=== PATIENT | male | born 1955 | race Caucasian/White ===

== ENCOUNTER → 2016-09-09 | Outpatient (CLI) | payer OTHER ==
--- NOTE | 2016-09-09 20:56 | DIAGNOSTIC IMAGING REPORT ---
MRI OF THE LUMBAR SPINE WITHOUT CONTRAST CLINICAL HISTORY: Acute right lower back pain. COMPARISON STUDY: Lumbar spine radiographs May 13, 2016. TECHNIQUE: Utilizing a 1.5 Marlin magnet and dedicated coil, multiplanar, multiecho imaging of the lumbar spine was performed without IV contrast. FINDINGS: For purposes of numbering on this exam, the L5-S1 disc space is assigned to axial image 27 of 30. Vertebral body heights are maintained. There is no intracanalicular mass or fluid collection. Conus terminates at the lower L1 level. Paravertebral soft tissues are unremarkable. There are disc bulges at multiple levels within the lower thoracic spine which result in mild narrowing of the central canal. L1-2: There is mild disc bulge. There is mild narrowing of the central canal. The neural foramen are patent. L2-3: There is disc bulge with ligamentous hypertrophy and facet arthrosis. The findings result in mild narrowing of the central canal, lateral recesses and neural foramen. L3-4: There is disc bulge with ligamentous hypertrophy and facet arthrosis result in mild narrowing of the central canal, lateral recesses and neural foramen. L4-5: There is disc bulge with ligamentous hypertrophy and mild facet arthrosis. There is mild narrowing of the central canal, lateral recesses and neural foramen. L5-S1: There is disc space narrowing with disc bulge. There is minimal narrowing of the central canal. There is moderate narrowing of the neural foramen. IMPRESSION: 1. Multilevel degenerative disc disease with disc bulges at numerous levels within the lower thoracic and lumbar spine that result in mild narrowing of the central canal and lateral recesses. 2. Mild to moderate multilevel neural foraminal stenosis most pronounced at L5-S1. Electronically signed by: Tae Marmolejo M.D. 09/09/2016 8:54 PM Dictated Date/Time: 09/09/2016 8:50 PM
== END | disposition home or self-care (01) ==
LOC: C.MRI 19:24
PROVIDERS: ATTEND Family Medicine
DX: M51.35 Other intervertebral disc degeneration, thoracolumbar region (principal); M54.41 Lumbago with sciatica, right side

== ENCOUNTER 2016-10-31 16:39 | Emergency (ER) | payer OTHER ==
[~2016-10-31] VITALS: Ht 165.1 cm; Wt 85.7 kg
[2016-10-31 16:43] VITALS: TEMP 36.4; Ht 165.1 cm; Wt 85.7 kg
[2016-10-31] MEDS ORDERED: LIDOCAINE/EPINEPHRINE 1% 20 ML VIAL INFIL STA (16:55)
--- NOTE | 2016-10-31 17:04 | EMERGENCY ROOM VISIT NOTE ---
ED Visit Note First contact with patient: 16:48 Chief Complaint: "Right knee, right arm bicep" History of Present Illness: This patient is a 60 year old male who presents to the Emergency Department via private vehicle for evaluation of their lower right leg, right thumb, and right arm laceration. Patient sustained the laceration while accidentally falling into a sickle bar attachment for a tractor. They report a moderate amount of bleeding initially. They deny any numbness or tingling into the distal extremity. Patient rates his current discomfort as a 0/10. Patient's Tetanus status is currently up-to-date. Medications: None Allergies: Naproxen PMH: Shoulder surgery, carpal tunnel surgery, hernia, tonsils, knee, elbow SHx: Lives at home with spouse and children ROS: All pertinent positive and negative review of systems are appropriately documented in the History of Present Illness. Physical Exam: VITAL SIGNS - Vital signs and nursing notes were reviewed. GENERAL - 60-year-old male appearing her stated age who is in no acute distress. Communicates well with provider and answers questions appropriately. SKIN - There is a 2 cm long laceration noted in a V-shaped on the skin overlying the anterior knee. The edges gape apart with traction. No foreign bodies appreciated. Upon further examination there are no deep structures including vessel, tendon, or bony structures appreciated. There is no active bleeding noted. There are also superficial abrasions/lacerations noted to the lateral aspect of the right thumb, as well as the right biceps region. MUSCULOSKELETAL -full range of motion of the right knee. NEUROLOGIC - he is neurovascularly intact in the affected regions. VASCULAR - Capillary refill was brisk. IMAGING: RIGHT KNEE 2 VIEWS CLINICAL HISTORY: Puncture wound. FINDINGS: AP and crosstable lateral views of the right knee are compared to study dated 11/22/2015. The skeletal structures are osteopenic. No fracture is seen. There is moderate to advanced tricompartmental degenerative joint space narrowing, greatest in the medial and patellofemoral compartments. There are large patellar enthesophytes as well as large marginal osteophytes. There is a joint effusion. Mild soft tissue edema is present around the knee. No radiodense foreign body is identified. IMPRESSION: 1. Small joint effusion with no acute bony abnormality seen in the right knee. 2. Osteopenia with moderate to advanced arthritic change as above. 3. Soft tissue swelling is present around the knee. No radiodense foreign body is identified. Electronically signed by: David Short M.D. 10/31/2016 5:21 PM ED Course: Patient was seen and evaluated by myself. Risks and benefits of performing primary wound closure versus no repair were discussed with the patient who verbalizes understanding. Verbal consent was obtained prior to performing the procedure. 3 cc of 1% lidocaine was used to anesthetize the 2 cm knee laceration. The wound was cleansed and prepped in the typical sterile fashion utilizing normal saline and Betadine. The wound was sterilely draped. Once proper anesthetization was established, the wound was further examined and demonstrated no deep involvement as previously suspected. The wound was copiously irrigated with normal saline and Betadine. The wound was closed using 3 simple, 5-0 nylon sutures with the wound edges being well approximated. Patient tolerated the procedure well. No complications were met. The wound was cleansed and dressed with a Bacitracin dressing. The remainder of the wounds were cleansed with normal saline, dressed with bacitracin followed by bandages. Patient educated on worrisome symptoms for return visit to the Emergency Department. Patient discharged to home in good condition. No evidence of bony abnormality of the right humerus. In the evaluation and treatment of this patient, the following differential diagnoses were considered: Patellar Fracture, Tibial Plateau Fracture, Distal Femur Fracture, ACL Injury, PCL Injury, Collateral Ligament Injury, Pes Anserine Bursitis, puncture wound, retained foreign body, right humerus fracture , right hand fracture, Maisonneuve Fracture. Problem List Medical Problems: (1) Gastric erosion Status: Chronic Allergies Coded Allergies: Naproxen (Unverified Allergy, Unknown, G I BLEED, 11/22/15) Vital Signs Date Time Temp Pulse Resp B/P Pulse Ox O2 Delivery O2 Flow Rate FiO2 10/31/16 18:26 72 20 138/72 99 10/31/16 16:43 36.4 64 20 95 Room Air Departure Information Impression Primary Impression: Laceration Dispostion Home / Self-Care Condition GOOD Referrals Audie Nolen M.D. (PCP) Patient Instructions My [facility] [place] Additional Instructions Discharge Instructions: You have received 3 sutures on your right knee. These sutures are NOT dissolvable and WILL need to be removed by a health care provider in 12 days. You can return to the Emergency Department or contact your Primary Care Provider to have the sutures removed. Proper wound care is essential for adequate wound healing and infection prevention. You can shower and clean the wound with soap and water. Do not scour over the wound, pat dry with a towel. Do not submerse the wound (i.e. bathe or dish wash) until the sutures have been removed. You can use an antibiotic ointment with a dressing over the wound for the next 3-4 days. After this time you may leave the wound dry and open to the air. If crust develops over the wound you can use a Q-tip to apply a 1:1 peroxide:water solution to clean the wound. Look for signs of infection of the wound including: increased pain, swelling, foul discharge, streaking, or increased temperature. If any of these are noticed you should return to the Emergency Department for further assessment and treatment. As with any laceration you may have received nerve damage to the surrounding tissues. This damage may or may not be permanent. You should keep the area covered with sunscreen for the first 6 months to 1 year when at risk for exposure to help minimize scarring. You can also use scar reducing creams or Vitamin E oil to help minimize scarring. For pain control, you can use the following ogxl-ecy-zurmuva medicines (if >12 yo): - Regular strength (325mg/tab) Tylenol (acetaminophen) 2 tabs every 4-6 hours as needed. Do not exceed 12 tablets in a 24 hour period. Avoid taking more than 3 grams (3000 mg) of Tylenol per day. This includes any other sources of acetaminophen you may take on a regular basis. - Regular strength (200 mg/tab) Advil (ibuprofen) 1-2 tabs every 4-6 hours as needed. Do not exceed a dose of 3200 mg per day. Return to the emergency department if your symptoms worsen despite treatment course outlined above. Please return to emergency department with any new/concerning symptoms. IMAGING: RIGHT KNEE 2 VIEWS CLINICAL HISTORY: Puncture wound. FINDINGS: AP and crosstable lateral views of the right knee are compared to study dated 11/22/2015. The skeletal structures are osteopenic. No fracture is seen. There is moderate to advanced tricompartmental degenerative joint space narrowing, greatest in the medial and patellofemoral compartments. There are large patellar enthesophytes as well as large marginal osteophytes. There is a joint effusion. Mild soft tissue edema is present around the knee. No radiodense foreign body is identified.
--- NOTE | 2016-10-31 17:23 | DIAGNOSTIC IMAGING REPORT ---
RIGHT KNEE 2 VIEWS CLINICAL HISTORY: Puncture wound. FINDINGS: AP and crosstable lateral views of the right knee are compared to study dated 11/22/2015. The skeletal structures are osteopenic. No fracture is seen. There is moderate to advanced tricompartmental degenerative joint space narrowing, greatest in the medial and patellofemoral compartments. There are large patellar enthesophytes as well as large marginal osteophytes. There is a joint effusion. Mild soft tissue edema is present around the knee. No radiodense foreign body is identified. IMPRESSION: 1. Small joint effusion with no acute bony abnormality seen in the right knee. 2. Osteopenia with moderate to advanced arthritic change as above. 3. Soft tissue swelling is present around the knee. No radiodense foreign body is identified. Electronically signed by: David Short M.D. 10/31/2016 5:21 PM Dictated Date/Time: 10/31/2016 5:20 PM
[2016-10-31 18:26] VITALS: BP 138/72; PULSE 72; O2SAT 99
== END 2016-10-31 18:28 | disposition home or self-care (01) ==
LOC: C.EDB 16:40 → C.EDD 18:28
DX: S81.811A Laceration without foreign body, right lower leg, initial encounter (principal); S61.011A Laceration without foreign body of right thumb without damage to nail, initial encounter; S41.111A Laceration without foreign body of right upper arm, initial encounter; W30.9XXA Contact with unspecified agricultural machinery, initial encounter; K25.7 Chronic gastric ulcer without hemorrhage or perforation

== ENCOUNTER 2016-11-10 15:43 | Emergency (ER) | payer OTHER ==
[~2016-11-10] VITALS: Ht 165.1 cm; Wt 84.5 kg
[2016-11-10 15:58] VITALS: BP 147/93; PULSE 69; TEMP 36.6; O2SAT 98; Ht 165.1 cm; Wt 84.5 kg
--- NOTE | 2016-11-10 16:18 | EMERGENCY ROOM VISIT NOTE ---
ED Visit Note First contact with patient: 16:03 CHIEF COMPLAINT: Suture removal This patient returns to the ED today for removal of sutures that were placed 10 days ago. There has been no swelling, redness, or drainage from the wound. The patient feels like the laceration is healing well. REVIEW OF SYSTEMS: A complete 6 point review of systems was reviewed with the patient with pertinent positives and negatives as per history of present illness. All else were negative. PMH: The patient is healthy; there is no significant medical or surgical history. SOCIAL HISTORY: Patient lives at home locally with his family. Patient declines alcohol, drug, tobacco use. PHYSICAL EXAM: Vital Signs: Reviewed Nurse's notes. There is a sutured wound on the right knee with no signs of infection. There is no erythema, swelling, or tenderness. EMERGENCY DEPARTMENT COURSE: The 3 sutures were removed without any difficulty and there was no separation of the wound edges. DIAGNOSIS: Healing laceration and suture removal DISCHARGE INSTRUCTIONS AND TREATMENT: Wash any remaining crusts off of the wound today and resume your normal activities. Problem List Medical Problems: (1) Gastric erosion Status: Chronic Allergies Coded Allergies: Naproxen (Unverified Allergy, Unknown, G I BLEED, 11/22/15) Vital Signs Date Time Temp Pulse Resp B/P (MAP) Pulse Ox O2 Delivery O2 Flow Rate FiO2 11/10/16 15:58 36.6 69 17 147/93 98 Room Air Departure Information Impression Primary Impression: Encounter for removal of sutures Additional Impression: Puncture wound of right knee without foreign body Dispostion Home / Self-Care Condition GOOD Referrals Audie Nolen M.D. (PCP) Patient Instructions My [facility] Additional Instructions Wash any remaining crusts off of the wound today and resume your normal activities. Continue to watch for signs of infection including redness, drainage, discharge , swelling, increased pain, or fever. If this occurs, please return for follow- up or follow-up with your PCP. Continue to use a dry dressing over the wound. Do not fully submerge knee in water until scabs completely fall off and wound has healed. Problem Qualifiers Additional Impression: Puncture wound of right knee without foreign body Encounter type: subsequent encounter Qualified Codes: S81.031D - Puncture wound without foreign body, right knee, subsequent encounter
== END 2016-11-10 16:32 | disposition home or self-care (01) ==
LOC: C.EDB 15:44 → C.EDD 16:32
DX: Z48.02 Encounter for removal of sutures (principal)

== ENCOUNTER 2018-08-12 22:38 | Inpatient (IN) ==
--- NOTE | 2018-08-12 22:59 | Emergency Department Note ---
ED Provider Note Name: [] Age: [] Arrives Via: [] Informant: [] CC: [] HPI: [] []male arrives for evaluation of []. [] ROS: See above HPI for pertinent positives & negatives. A total of 10 systems reviewed and were otherwise negative. Past Medical History: [] Past Surgical History: [] Family History: [] Social History: [] Home Medications: [] Allergies [] Physical: Vitals: [] Exam: GENERAL: Patient is well appearing and in no acute distress. EYES: No scleral icterus, unremarkable pupils. ENT: Mucous membranes moist, no nasal congestion. NECK: No masses appreciated, no meningismus, trachea is midline. RESPIRATORY: No dyspnea. Clear to auscultation and equal bilaterally. No wheeze, no rhonchi. CARDIOVASCULAR: Regular rate and rhythm. No murmurs, rubs, gallops appreciated. GASTROINTESTINAL: Abdomen soft, non-tender, no peritonitis. Bowel sounds positive. No masses appreciated. BACK: No midline tenderness, no CVA tenderness EXTREMITIES: Normal motion all extremities, no cyanosis, no edema. NEUROLOGIC: Alert and oriented, no acute motor or sensory deficits, no focal weakness, cranial nerves grossly intact. SKIN: No rash, no jaundice, no diaphoresis. ED Course: Prior Medical Record, Triage/Nursing Notes, Medications, Allergies reviewed by Me Vital Signs: reviewed and remarkable for [] Labs: Reviewed and remarkable for [] Interventions: [] Imaging: [] EKG: [] Consults: [] Course/Times: [] Blood pressure: [] Elevated - Referred to PCP - [place] to be Situation. Normal. No Referral necessary Disposition: []Discharged. See plan for instructions. Referred to: PCP/[]. Condition: Good[]. Discharged to: Home[]. Prescriptions: []. Differentials: [] amongst other pathologies. Medical Decision Making: [] Impression: [] Critical Care Time: [] Past Med/Surg History Social History Feels Safe at Home: Yes Smoking Status: Never smoker Results & Data Vital Signs Vital Signs - 24 hr 08/12/18 22:42 Temperature 36.4 C L Temperature Source Oral Sepsis Recent Fever Within 48 Hours No Sepsis New/Unexplained Change in Mental Status No Sepsis Action Taken by Nursing No Action Required Pulse Rate 73 Pulse Rhythm Regular Pulse Strength Normal Respiratory Rate 18 Respiratory Effort / Characteristics Non-Labored Spontaneous Respiratory Depth Normal Respiratory Pattern Regular Blood Pressure 145/94 H Blood Pressure Mean 111 Blood Pressure Position Sitting Pulse Oximetry 96 Oxygen Delivery Method Room Air Discharge Plan Visit Data Chief Complaint: Cardiac Assessment Stated Complaint: NUMBNESS L ARM, STIFF NECK ED Provider: Richard Chacon
--- NOTE | 2018-08-12 22:59 | Emergency Department Note ---
Entered by Baljit Rubio acting as a scribe for Richard Chacon MD History of Present Illness General Chief complaint: Cardiac Assessment Stated complaint: NUMBNESS L ARM, STIFF NECK Time Seen by Provider: 08/12/18 22:56 History of Present Illness Maximum Pain Intensity: 7 Allergies Allergy/AdvReac Type Severity Reaction Status Date / Time naproxen Allergy Unknown G I BLEED Unverified 11/22/15 01:45 Past Med/Surg History Social History Feels Safe at Home: Yes Smoking Status: Never smoker Physical Exam Vital Signs Vital Signs - 24 hr 08/12/18 22:42 Temperature 97.5 F L Temperature Source Oral Sepsis Recent Fever Within 48 Hours No Sepsis New/Unexplained Change in Mental Status No Sepsis Action Taken by Nursing No Action Required Pulse Rate 73 Pulse Rhythm Regular Pulse Strength Normal Respiratory Rate 18 Respiratory Effort / Characteristics Non-Labored Spontaneous Respiratory Depth Normal Respiratory Pattern Regular Blood Pressure 145/94 H Blood Pressure Mean 111 Blood Pressure Position Sitting Pulse Oximetry 96 Oxygen Delivery Method Room Air Discharge Plan Visit Data Chief Complaint: Cardiac Assessment Stated Complaint: NUMBNESS L ARM, STIFF NECK ED Provider: Richard Chacon
[2018-08-12] MEDS ORDERED: SODIUM CHLORIDE 0.9% 1000ML 1,000 ML IV ONE (23:06)
--- NOTE | 2018-08-12 23:10 | Emergency Department Note ---
Entered by Baljit Rubio acting as a scribe for Richard Chacon MD ED Provider Note Name: Ciro Lainez Age: 62 Arrives Via: Walk in Informant: Patient CC: Arm Pain HPI: A 62 year old male arrives for evaluation of left arm pain that started today around [id number]. The patient reports pain and numbness in his left and states that his arm feels as though "there is a blood pressure cuff on it." The patient admits to a headache, neck pain, and back pain. He denies any chest pain or abdominal pain. The patient states he was not doing anything specific when the pain started. 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 He also denies any vision changes. The patient reports a family history of cardiac problems and CVA. He reports that his brother had a stroke when he was 65 years old and states that his mother has a history of CAD. The patient denies taking any medications daily. He admits to a previous surgery on his right hand, but denies any others. He denies any alcohol, tobacco, or drug use. ROS: See above HPI for pertinent positives & negatives. A total of 10 systems reviewed and were otherwise negative. Past Medical History: Effusion of right knee, gastric erosion. Past Surgical History: Right hand surgery. Family History: Cardiac problems. CVA. Social History: . No tobacco, alcohol, or drug use. Home Medications: None. Allergies Naproxen Physical: Vitals: BP: 130/90, P: 72, R: 16, T: 97.5, O2 Sat: 96, Delivery: Room Air. Exam: GENERAL: Patient is mildly anxious appearing and in no acute distress. EYES: No scleral icterus, unremarkable pupils. ENT: Mucous membranes moist, no nasal congestion. NECK: No masses appreciated, no meningismus, trachea is midline. RESPIRATORY: No dyspnea. Clear to auscultation and equal bilaterally. No wheeze, no rhonchi. CARDIOVASCULAR: Regular rate and rhythm. No murmurs, rubs, gallops appreciated. GASTROINTESTINAL: Abdomen soft, non-tender, no peritonitis. Bowel sounds positive. No masses appreciated. BACK: No midline tenderness, no CVA tenderness EXTREMITIES: Normal motion all extremities, no cyanosis, no edema. NEUROLOGIC: Alert and oriented, decreased strength of left hand with perceived sensation of entire left arm, no focal weakness, cranial nerves grossly intact. Periodically garbled speech. SKIN: No rash, no jaundice, no diaphoresis. ED Course: Prior Medical Record, Triage/Nursing Notes, Medications, Allergies reviewed by Me Vital Signs: reviewed and remarkable for HTN Labs: Reviewed and remarkable for wnl Interventions: Saline Lock, NSS bolus 1 L , ASA 324mg Po Imaging: X ray results are stated below per my interpretation: Chest: 1 view: No infiltrate, no effusion, normal cardiac border. [employer] Radiologist interpretation reviewed by me: "CT HEAD: No intracranial hemorrhage, mass effect or CT evidence of acute infarct Ventricles are within limits and midline Visualized paranasal sinuses, mastoids and orbits are within limits Radiologist: Silvestre Correa M.D." EKG: NSR Consults: 0005: I reviewed the patient's case with Dr. Lane, [facility] Hospitalist. He will evaluate the patient for further management. Reassessments/Times: 2300: Past medical records reviewed. The patient was evaluated in room C3, and a complete history and physical examination were performed. 2357: I checked in on the patient and he reports that his symptoms are improving. Blood pressure: Elevated - Referred to Hospitalist Disposition: Hospitalization Differentials: CVA, ACS, dissection, cervical radiculopathy, amongst other pathologies. Medical Decision Making: Pleasant 62 yr old male with history of gastric ulcer in past but otherwise healthy and currently on no meds arrives after about 6 hours of numbness left a rm and mild weakness. On evaluation he periodically has some mild garbled speech which he attributes to anxiety/dry mouth. He does have mild decreased strength in left hand though still 5/5. He has no other neuro deficits. He does not meet TPA criteria and I do not feel there is incidation for calling stroke alert at this time given minimal symptoms. CT head was done which was negative. EKG nsr. Cbc, bmp, trop OK. He was given 1 L NSS bolus and mild improvement of symptoms. For neuro protection he was given ASA 324mg PO. He will be brought in to hospitalist service for further work-up of symptoms. While radiculopathy possible, I can no effectively rule out CVA at this time and with his extensive family history I feel that this rule out is required. With normal EKG, Trop after 6 hours symptoms I do not feel this is ACS. No chest pain nor symptoms consistent with dissection at this time. Impression: Paresthesia of left arm Richard Chacon MD The scribe's documentation has been prepared under my direction and personally reviewed by me in its entirety. I confirm that the note above accurately reflects all work, treatment, procedures, and medical decision making performed by me. Impression & Plan Paresthesia of left arm Past Med/Surg History Social History Communication Ability: Effective Courtesy Bus Driver Required: No Beliefs That Will Affect Care: None Current Living Situation: Spouse Other Information That Helps Us Care for You: No Feels Safe at Home: Yes Smoking Status: Never smoker Hx Alcohol Use: No Hx Substance Use: No Results & Data Vital Signs Vital Signs - 24 hr 08/12/18 22:42 08/12/18 23:54 08/13/18 00:59 Temperature 36.4 C L Temperature Source Oral Sepsis Recent Fever Within 48 Hours No Sepsis New/Unexplained Change in Mental Status No Sepsis Action Taken by Nursing No Action Required Pulse Rate 73 Pulse Rate [Right] 72 62 Pulse Rhythm Regular Pulse Rhythm [Right] Regular Regular Pulse Strength Normal Pulse Strength [Right] Normal Normal Respiratory Rate 18 16 16 Respiratory Effort / Characteristics Non-Labored Spontaneous Non-Labored Spontaneous Non-Labored Spontaneous Respiratory Depth Normal Normal Normal Respiratory Pattern Regular Regular Blood Pressure 145/94 H Blood Pressure [Left Arm] Blood Pressure [Right Arm] 130/90 154/87 H Blood Pressure Mean 111 Blood Pressure Mean [Left Arm] Blood Pressure Mean [Right Arm] 103 109 Blood Pressure Position Sitting Blood Pressure Position [Left Arm] Blood Pressure Position [Right Arm] Lying Pulse Oximetry 96 96 98 Oxygen Delivery Method Room Air Room Air Room Air 08/13/18 01:30 Temperature 36.5 C Temperature Source Oral Sepsis Recent Fever Within 48 Hours Sepsis New/Unexplained Change in Mental Status Sepsis Action Taken by Nursing Pulse Rate Pulse Rate [Right] 58 L Pulse Rhythm Pulse Rhythm [Right] Regular Pulse Strength Pulse Strength [Right] Normal Respiratory Rate 16 Respiratory Effort / Characteristics Non-Labored Respiratory Depth Normal Respiratory Pattern Regular Blood Pressure Blood Pressure [Left Arm] 168/99 H Blood Pressure [Right Arm] 168/99 H Blood Pressure Mean Blood Pressure Mean [Left Arm] 122 Blood Pressure Mean [Right Arm] 122 Blood Pressure Position Blood Pressure Position [Left Arm] Lying Blood Pressure Position [Right Arm] Pulse Oximetry 98 Oxygen Delivery Method Room Air Laboratory Data Result diagrams: 08/12/18 23:00 08/12/18 23:00 Lab Results 08/12/18 08/12/18 08/12/18 Range/Units 23:00 23:00 23:00 WBC 7.96 (4.8-10.8) K/uL RBC 4.97 (4.7-6.1) M/uL Hgb 15.3 (14.0-18.0) g/dL Hct 43.3 (42-52) % MCV 87.1 (80-100) fL MCH 30.8 (25-34) pg MCHC 35.3 (32-36) g/dL RDW Std Deviation 42.3 (36.4-46.3) fL RDW Coeff of Aparna 13.3 (11.5-14.5) % Plt Count 240 (130-400) K/uL MPV 8.8 (7.4-10.4) fL Immature Gran % (Auto) 0.3 % Neut % (Auto) 53.6 % Lymph % (Auto) 35.6 % [place] % (Auto) 7.4 % Eos % (Auto) 2.6 % Baso % (Auto) 0.5 % Immature Gran # (Auto) 0.02 (0.00-0.02) K/uL Neut # (Auto) 4.27 (1.4-6.5) K/uL Lymph # (Auto) 2.83 (1.2-3.4) K/uL [place] # (Auto) 0.59 (0.11-0.59) K/uL Eos # (Auto) 0.21 (0-0.5) K/uL Baso # (Auto) 0.04 (0-0.2) K/uL PT 10.6 (9.0-12.0) Seconds INR 1.0 (0.9-1.1) APTT 27.6 (21.0-31.0) Seconds PTT Ratio 1.0 Sodium 140 (136-145) mmol/L Potassium 4.1 (3.5-5.1) mmol/L Chloride 108 H (98-107) mmol/L Carbon Dioxide 26 (21-32) mmol/L Anion Gap 6.0 (3-11) BUN 21 H (7-18) mg/dl Creatinine 1.26 (0.6-1.4) mg/dl Est Cr Clr Drug Dosing 63.9 ml/min Est GFR ( Amer) 71.4 Est GFR (Non-Af Amer) 61.6 BUN/Creatinine Ratio 16.8 (10-20) Glucose 95 (70-99) mg/dl Calcium 8.4 L (8.5-10.1) mg/dl Magnesium 2.3 (1.8-2.4) mg/dl Total Bilirubin 0.4 (0.2-1) mg/dl Direct Bilirubin 0.1 (0-0.2) mg/dl AST 33 (15-37) U/L ALT 41 (12-78) U/L Alkaline Phosphatase 74 (45-117) U/L Troponin I < 0.015 (0-0.045) ng/ml Total Protein 7.1 (6.4-8.2) gm/dl Albumin 3.7 (3.4-5.0) gm/dl Administered Medications Gadobutrol (Gadavist 10ml) 8.5 ml IV ONCE PRN PRN Reason: Interaction Checking Stop: 08/17/18 04:18 Last Admin: 08/13/18 04:19 Dose: 8.5 ml Documented by: [id number] Discontinued Medications Aspirin (Aspirin Chew) 324 mg PO NOW STA Stop: 08/12/18 23:47 Last Admin: 08/12/18 23:53 Dose: 324 mg Documented by: [id number] Sodium Chloride (Nss 1000ml) 1,000 mls @ 999 mls/hr IV .Q1H1M ONE Stop: 08/13/18 00:06 Last Infusion: 08/13/18 00:26 Dose: 0 mls/hr Documented by: [id number] Admin: 08/12/18 23:14 Dose: 999 mls/hr Documented by: [id number] Discharge Plan Visit Data *Final* Discharge Date/Time: 08/13/18 01:14 Chief Complaint: Cardiac Assessment Stated Complaint: NUMBNESS L ARM, STIFF NECK ED Provider: Richard Chacon Discharge Problem: Paresthesia of left arm Patient Disposition: Admitted As Inpatient Discharge Instructions Interventions: ED Discharge Assessment Last Done: 08/13/18 01:14 The scribe's documentation has been prepared under my direction and personally reviewed by me in its entirety. I confirm that the note above accurately reflects all work, treatment, procedures, and medical decision making performed by me.
[2018-08-12 23:19] LABS: Basophils # (auto) 0.04 K/uL (0-0.2); Basophils % (auto) 0.5 %; Eosinophils # (auto) 0.21 K/uL (0-0.5); Eosinophils % (auto) 2.6 %; Hematocrit (blood only) 43.3 % (42-52); Hemoglobin 15.3 g/dL (14.0-18.0); Immature Granulocytes # (auto) 0.02 K/uL (0.00-0.02); Immature Granulocytes % (auto) 0.3 %; Lymphocytes # (auto) 2.83 K/uL (1.2-3.4); Lymphocytes % (auto) 35.6 %; Mean Corpuscular Hgb Conc 35.3 g/dL (32-36); Mean Corpuscular Volume 87.1 fL (80-100); Mean Platelet Volume 8.8 fL (7.4-10.4); Monocytes # (auto) 0.59 K/uL (0.11-0.59); Monocytes % (auto) 7.4 %; Neutrophils # (auto) 4.27 K/uL (1.4-6.5); Neutrophils % (auto) 53.6 %; Platelet Count 240 K/uL (130-400); RDW Coefficient of Variation 13.3 % (11.5-14.5); RDW Standard Deviation 42.3 fL (36.4-46.3); Red Blood Count 4.97 M/uL (4.7-6.1); White Blood Count 7.96 K/uL (4.8-10.8)
[2018-08-12 23:27] LABS: Alanine Aminotransferase 41 U/L (12-78); Albumin Level 3.7 gm/dl (3.4-5.0); Aspartate Aminotransferase 33 U/L (15-37); BUN Creatinine Ratio 16.8 (10-20); Bilirubin Direct 0.1 mg/dl (0-0.2); Blood Urea Nitrogen 21 mg/dl (7-18); Calcium 8.4 mg/dl (8.5-10.1); Carbon Dioxide 26 mmol/L (21-32); Chloride 108 mmol/L (98-107); Creatinine Clr Calc Pharmacy 63.9 ml/min; Est GFR (African American) 71.4; Est GFR (Non-African American) 61.6; Glucose 95 mg/dl (70-99); Magnesium 2.3 mg/dl (1.8-2.4); Potassium 4.1 mmol/L (3.5-5.1); Sodium 140 mmol/L (136-145)
[2018-08-12 23:29] LABS: Partial Thromboplastin Time 27.6 Seconds (21.0-31.0); Prothrombin Time 10.6 Seconds (9.0-12.0)
[2018-08-12 23:32] LABS: Alkaline Phosphatase 74 U/L (45-117); Bilirubin,Total 0.4 mg/dl (0.2-1); Total Protein 7.1 gm/dl (6.4-8.2); Troponin I < 0.015 ng/ml (0-0.045)
[2018-08-12] MEDS ORDERED: ASPIRIN 81 MG CHEW PO STA (23:46)
--- NOTE | 2018-08-13 00:43 | History & Physical Report ---
Date of Service August 13, 2018 Assessment & Plan (1) Paresthesia of left arm: 62 M PRESENTS WITH LEFT UPPER EXTREMITY NUMBNESS AND TINGLINESS STARTED AROUD 6PM CT HEAD UNREMARKABLE FOLLOWUP WITH STROKE WORKUP WITH MRI HEAD ECHO AND CAROTID DOPPLER RECEIVED ASPIRIN IN ER STARTED ON ASA AND LIPITOR FOR NOW. IF STROKE WORKUP NEGATIVE CONSIDER CERVICAL RADICULOPATHY NEUROLOGY CONSULTED PT/OT MONITOR IN TELE Present on Admission?: Yes (2) Hypothyroidism (acquired): ON SYNTHYROID Present on Admission?: Yes History of Present Illness Chief Complaint: Left hand numbness Primary Care Provider: Audie Nolen This is 62-year-old male with past medical history significant for hypothyroidism presents with left hand numbness. 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 After his work he came to the ER and still having same symptoms numbness and heaviness of the left hand. He was worried because his both his parents had CABG and both of his brothers had a stroke. Denies any weakness. 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 Denies any headache no blurred visions no dizziness no chest pain no shortness of breath no cough no fever no chills. Currently resting comfortably and hemodynamically stable.Speech is clear. Swallowing ok Allergies Allergy/AdvReac Type Severity Reaction Status Date / Time naproxen Allergy Unknown G I BLEED Unverified 08/12/18 23:02 Home Medications Home Medications Medication Instructions Recorded Confirmed Type No Known Home Medications 08/12/18 08/12/18 History Past Med/Surg History Medical History Hypothyroidism (acquired) Social History Communication Ability: Effective After School Program Assistant Required: No Beliefs That Will Affect Care: None Current Living Situation: Spouse Other Information That Helps Us Care for You: No Feels Safe at Home: Yes Smoking Status: Never smoker Hx Alcohol Use: No Hx Substance Use: No Review of Systems Constitutional- no fever Eyes- no acute visual changes ENT- no sinus drainage; no pharyngitis Pulmonary- no cough, no shortness of breath Cardiac- no chest pain, no edema GI- no nausea, no vomiting, no diarrhea, no melena - no dysuria, no hematuria Derm- no rashes Hematologic- no unusual bruising, no unusual bleeding Neuro- no headaches, numbness of left upper extremity Physical Exam Vital Signs (Past 24 Hours): Last Vital Signs Temp 36.4 C L 08/12/18 22:42 Pulse 72 08/12/18 23:54 Resp 16 08/12/18 23:54 BP 130/90 08/12/18 23:54 Pulse Ox 96 08/12/18 23:54 Physical Exam: General- Not in distress Head- atraumatic Eyes- PERRL, EOMI, anicteric ENT- oropharynx clear Neck- supple, no JVD, no adenopathy, carotids +2/2, no bruits appreciated Lungs- clear to auscultation and percussion Heart- regular rhythm; no murmur, no gallop Abdomen- normal bowel sounds, soft, nontender, no masses Extremities- no pretibial edema, no calf tenderness; peripheral pulses intact Neuro- alert, oriented x 3; PERRL, EOMI; no facial palsy; no dysarthria; motor 4/5 in left upper extremity and 5/5 in all other extremities finger to nose intact bilaterally, sensations and position sense intact, heel to guo test normal Skin- warm & dry Results & Data Laboratory Results Laboratory Results - last 24 hr 08/12/18 08/12/18 08/12/18 23:00 23:00 23:00 WBC 7.96 RBC 4.97 Hgb 15.3 Hct 43.3 MCV 87.1 MCH 30.8 MCHC 35.3 RDW Std Deviation 42.3 RDW Coeff of Aparna 13.3 Plt Count 240 MPV 8.8 Immature Gran % (Auto) 0.3 Neut % (Auto) 53.6 Lymph % (Auto) 35.6 [place] % (Auto) 7.4 Eos % (Auto) 2.6 Baso % (Auto) 0.5 Immature Gran # (Auto) 0.02 Neut # (Auto) 4.27 Lymph # (Auto) 2.83 [place] # (Auto) 0.59 Eos # (Auto) 0.21 Baso # (Auto) 0.04 PT 10.6 INR 1.0 APTT 27.6 PTT Ratio 1.0 Sodium 140 Potassium 4.1 Chloride 108 H Carbon Dioxide 26 Anion Gap 6.0 BUN 21 H Creatinine 1.26 Est Cr Clr Drug Dosing 63.9 Est GFR ( Amer) 71.4 Est GFR (Non-Af Amer) 61.6 BUN/Creatinine Ratio 16.8 Glucose 95 Calcium 8.4 L Magnesium 2.3 Total Bilirubin 0.4 Direct Bilirubin 0.1 AST 33 ALT 41 Alkaline Phosphatase 74 Troponin I < 0.015 Total Protein 7.1 [address]in [address] HEAD unremarkable unoffical report CXR unremarkable AWAIT CAROTID DOPPLER AND MRI REPORT ECG Additional Comments: ECG: NSR WITH RATE OF 67. NO ACUTE ST CHANGES SEEN. Code Status & VTE Plan Code Status FULL CODE VTE Prophylaxis Plan VTE Prophylaxis will be ordered: Yes
[2018-08-13] MEDS ORDERED: POLYETHYLENE (MIRALAX) 17 GM PACK PO PRN (01:29)
[2018-08-13] MEDS ORDERED: SODIUM CHLORIDE 0.9% 1000ML 1,000 ML IV SCH (01:29)
[2018-08-13] MEDS ORDERED: NITROGLYCERIN SL 0.4 MG/TAB TAB SL PRN (01:29)
[2018-08-13] MEDS ORDERED: ALUMINUM/MAGNESIUM SUSP 30 ML UDC PO PRN (01:29)
[2018-08-13] MEDS ORDERED: PHARMACIST DISCHARGE MED REC CONSULT PRN (01:29)
[2018-08-13] MEDS ORDERED: ACETAMINOPHEN 325 MG TAB PO PRN (01:29)
[2018-08-13] MEDS ORDERED: ONDANSETRON INJ 2 MG/ML 2 ML VIAL IV PRN (01:29)
[2018-08-13] MEDS ORDERED: GADOBUTROL 10ML VIAL IV PRN (04:19)
[2018-08-13 05:49] LABS: Basophils # (auto) 0.04 K/uL (0-0.2); Basophils % (auto) 0.7 %; Eosinophils # (auto) 0.18 K/uL (0-0.5); Hematocrit (blood only) 44.1 % (42-52); Immature Granulocytes # (auto) 0.01 K/uL (0.00-0.02); Immature Granulocytes % (auto) 0.2 %; Lymphocytes % (auto) 31.1 %; Mean Corpuscular Volume 87.5 fL (80-100); Mean Platelet Volume 9.2 fL (7.4-10.4); Monocytes # (auto) 0.44 K/uL (0.11-0.59); Monocytes % (auto) 7.2 %; Neutrophils # (auto) 3.53 K/uL (1.4-6.5); Neutrophils % (auto) 57.8 %; Platelet Count 218 K/uL (130-400); RDW Coefficient of Variation 13.4 % (11.5-14.5); RDW Standard Deviation 42.6 fL (36.4-46.3); Red Blood Count 5.04 M/uL (4.7-6.1)
[2018-08-13 06:12] LABS: BUN Creatinine Ratio 19.3 (10-20); Blood Urea Nitrogen 16 mg/dl (7-18); Calcium 8.2 mg/dl (8.5-10.1); Carbon Dioxide 26 mmol/L (21-32); Chloride 109 mmol/L (98-107); Creatinine Clr Calc Pharmacy 95.7 ml/min; Est GFR (African American) 110.8; Est GFR (Non-African American) 95.6; Glucose 89 mg/dl (70-99); Potassium 3.9 mmol/L (3.5-5.1); Sodium 139 mmol/L (136-145)
--- NOTE | 2018-08-13 06:37 | CT Scan Report ---
HEAD CT NONCONTRAST CT DOSE: 537.48 mGy.cm HISTORY: left arm weakness TECHNIQUE: Multiaxial CT images of the head were performed without the use of intravenous contrast. A utomated exposure control was utilized for this study. A dose lowering technique was utilized adheri ng to the principles of ALARA. Comparison: None. Findings: The paranasal sinuses and mastoid air cells are clear. The calvarium and skull base are int act. The ventricles and sulci are within normal limits. There is no mass, hematoma, midline shift, or acute infarct. Impression: No acute intracranial abnormality. Electronically signed by: Robert Cleaning M.D. 08/13/2018 6:35 AM
--- NOTE | 2018-08-13 06:40 | Magnetic Resonance Report ---
Brain MRI WITH AND WITHOUT CONTRAST HISTORY: Altered mental status. TECHNIQUE: Multiplanar multisequence MRI of the brain was performed both before and after the intrave nous administration of contrast. COMPARISON STUDY: None. FINDINGS: There are no areas of restricted diffusion to suggest acute infarction. The midline structu res are intact. The paranasal sinuses are clear. The mastoid air cells are clear. The ventricles and sulci are within normal limits for age. There is no mass, hematoma, midline shift. The major vascular flow-voids at the skull base are well maintained. Postcontrast sequences show no areas of abnormal e nhancement. There are few scattered punctate foci of T2 hyperintensity seen within the white matter t he supratentorial brain. These are nonspecific but favor mild microvascular ischemic change. A pneumatized left petrous apex with associated effusion. IMPRESSION: No acute intracranial abnormality. Electronically signed by: Robert Cleaning M.D. 08/13/2018 6:39 AM
[2018-08-13 06:47] LABS: Chol HDL Ratio 3; Cholesterol 128 mg/dl (0-200); HDL Cholesterol 40 mg/dl; LDL Cholesterol Calculated 73 mg/dl; Triglycerides 73 mg/dl (0-150); Troponin I < 0.015 ng/ml (0-0.045); VLDL Cholesterol 15 mg/dl
--- NOTE | 2018-08-13 07:52 | Ultrasound Report ---
BILATERAL CAROTID DOPPLER STUDY HISTORY: Stroke symptoms. Altered mental status. COMPARISON: None. TECHNIQUE: Real-time, grayscale, and color Doppler sonography of the carotid arteries was performed. Imaging reviewed in the transverse and longitudinal planes. All measurements were calculated based on NASCET criteria. FINDINGS: Antegrade flow is seen in the bilateral vertebral arteries. The brachial pressures are hemodynamically similar. The peak systolic velocity within the right ICA is 66 cm/s. The right systolic ratio is 0.9. The peak systolic velocity within the left ICA is 56 cm/s. The left systolic ratio is 0.6. IMPRESSION: No hemodynamically significant stenosis seen within the carotid arteries. Electronically signed by: Robert Cleaning M.D. 08/13/2018 7:50 AM
--- NOTE | 2018-08-13 07:58 | XRay Report ---
XR chest 1V portable HISTORY: Stroke symptoms. COMPARISON: Chest 05/06/2015. FINDINGS: No pneumothorax. No pleural effusions. The heart is mildly enlarged. There is no evidence f or pulmonary edema. A few small bibasilar linear densities favor subsegmental atelectasis or scarring . This has slightly improved compared to the prior study. IMPRESSION: Mild cardiomegaly. Otherwise, no acute process within the chest. Electronically signed by: Robert Cleaning M.D. 08/13/2018 7:56 AM
[2018-08-13 08:01] LABS: Estimated Average Glucose 105 mg/dl; Hemoglobin A1C 5.3 % (4.5-5.6)
[2018-08-13] MEDS ORDERED: ASPIRIN 81 MG ECTAB PO SCH (09:00)
[2018-08-13] MEDS ORDERED: ATORVASTATIN 40 MG TAB PO SCH (09:00)
--- NOTE | 2018-08-13 10:29 | Hospitalist Progress Note ---
Date of Service August 13, 2018 Assessment & Plan (1) Paresthesia of left arm: Admitted with strokelike symptoms involving paresthesia of the left upper extremity No more symptoms since admission CT of the head and MRI did not show any stroke Carotid ultrasound did not show any significant carotid stenosis Echocardiogram showed normal LV function, no wall motion abnormality, no significant valvular stenosis and no interatrial shunt Lipid profile remain unremarkable Clinically a lot better Awaiting neurology evaluation and possible discharge this afternoon Left wrist ganglion cyst Complains to have some local discomfort Advised to have or 3 evaluation if continues to have symptoms (2) Hypothyroidism (acquired): ON SYNTHYROID Subjective He is a 62-year-old male with past medical history significant for hypothyroidism presents with left hand numbness. He has a strong family history of stroke. 08/13 Patient was seen and examined in telemetry unit The paresthesia involving the left upper extremity is almost gone He has a ganglionic cyst the left wrist and that has been causing some local discomfort and pain Physical Exam Vital Signs (Past 24 Hours): Last Vital Signs Temp 36.5 C 08/13/18 08:05 Pulse 74 08/13/18 08:05 Resp 18 08/13/18 08:05 BP 136/81 08/13/18 08:05 Pulse Ox 98 08/13/18 08:05 Physical Exam: No apparent distress at rest Constitutional: WD/WN, vitals as above Eyes: PERRL, conjunctivae normal, anicteric sclerae ENMT: external ear and nose normal, oropharynx normal Neck: trachea midline, no thyromegaly Respiratory: normal respiratory effort, lungs clear to auscultation Cardiovascular: RRR, no murmur, no edema Rate/Rhythm: regular rate and regular rhythm Heart Sounds: normal S1 and normal S2 Gastrointestinal (Abdomen): normal bowel sounds, soft, nontender, no hepatosplenomegaly Neurologic: patellar DTR's 2+ bilat, sensation intact Results & Data Laboratory Results Short CBC 08/12/18 08/13/18 Range/Units 23:00 05:26 WBC 7.96 6.10 (4.8-10.8) K/uL Hgb 15.3 15.0 (14.0-18.0) g/dL Hct 43.3 44.1 (42-52) % Plt Count 240 218 (130-400) K/uL BMP 08/12/18 08/13/18 23:00 05:26 Sodium 140 139 Potassium 4.1 3.9 Chloride 108 H 109 H Carbon Dioxide 26 26 BUN 21 H 16 Creatinine 1.26 0.83 D Glucose 95 89 Calcium 8.4 L 8.2 L Cardiac Enzymes 08/12/18 08/13/18 08/13/18 Range/Units 23:00 05:26 09:17 Troponin I < 0.015 < 0.015 < 0.015 (0-0.045) ng/ml Liver Function 08/12/18 Range/Units 23:00 Total Bilirubin 0.4 (0.2-1) mg/dl Direct Bilirubin 0.1 (0-0.2) mg/dl AST 33 (15-37) U/L ALT 41 (12-78) U/L Alkaline Phosphatase 74 (45-117) U/L Albumin 3.7 (3.4-5.0) gm/dl Medications Administered Current Inpatient Medications Acetaminophen (Tylenol) 650 mg PO Q4H PRN PRN Reason: Pain or Fever Stop: 09/12/18 01:28 Al Hydrox/Mg Hydrox/Simethicone (Maalox) 15 ml PO Q4H PRN PRN Reason: Dyspepsia Stop: 09/12/18 01:28 Aspirin (Ecotrin Ectab) 81 mg PO [facility] Stop: 09/12/18 08:59 Last Admin: 08/13/18 08:59 Dose: 81 mg Documented by: Atorvastatin Calcium (Lipitor) 40 mg PO [facility] Stop: 09/12/18 08:59 Last Admin: 08/13/18 08:59 Dose: 40 mg Documented by: Gadobutrol (Gadavist 10ml) 8.5 ml IV ONCE PRN PRN Reason: Interaction Checking Stop: 08/17/18 04:18 Last Admin: 08/13/18 04:19 Dose: 8.5 ml Documented by: Miscellaneous Information (Pharmacist Discharge Med Rec Consult) 1 ea N/A UD PRN PRN Reason: Consult Stop: 09/12/18 01:28 Nitroglycerin (Nitrostat) 0.4 mg SL UD PRN PRN Reason: Chest Pain Stop: 09/12/18 01:28 Ondansetron HCl (Zofran) 4 mg IV Q6H PRN PRN Reason: Nausea Stop: 09/12/18 01:28 Polyethylene Glycol (Miralax Powder Packet) 17 gm PO DAILY PRN PRN Reason: Constipation Stop: 09/12/18 01:28
--- NOTE | 2018-08-13 12:35 | Communication Note ---
Date of Service: August 13, 2018 I have seen and evaluated Mr. Lainez today and reviewed his imaging and laboratory data in addition to performing an examination. The history in my mind is a little worrisome for angina as the arm pain occurred while he was working and was described as squeezing and located in the upper arm and radiated to the back. Currently there is nothing on examination to suggest a cervical radiculopathy or carpal tunnel syndrome, he has no prior history to suggest the same, the MRI reveals no evidence for an infarction involving the right hemisphere or a right carotid artery stenosis and I would suggest that at some point either during the current hospitalization on an outpatient basis, he be evaluated by cardiology and have a stress test or stress echo depending on what they feel would be an appropriate study For now neurology does not have any further suggestions and I do not believe this man currently needs an EMG or a cervical MRI unless more typical or symptoms are more reminiscent of carpal tunnel syndrome emerge in the future. Full consultation has been dictated and will be signed when typed. Matias Joshua MD
[2018-08-13] MEDS ORDERED: STROKE PATIENT DISCHARGE STA (13:41)
--- NOTE | 2018-08-13 18:55 | Consultation Report ---
DATE OF CONSULTATION: 08/13/2018 CONSULTATION FOR: Carlitos Garcia MD. HISTORY OF PRESENT ILLNESS: Ciro is 62 years old. He is right handed, is a patient I believe of Dr. Nolen in [place], and has a history of hypothyroidism, but also has a positive family history for apparently premature coronary artery and cerebrovascular disease. He is a hospital worker. At around 6:00 p.m. last night, noted heaviness and squeezing in the left upper arm in the region of the biceps, which then radiated down to the medial aspect of his left wrist. He was still having some symptoms. He did not have any paresthesias or anything, but then after work came in to the ER complaining of heaviness in the left hand. He was concerned about coronary symptoms and also because of his stroke. There was no particular weakness or fixed sensory loss. He has had what is probably a ganglion cyst of the left extensor tendon of the thumb on the wrist area and also has a little degenerative arthritic type pain in the base of the left thumb, but has no carpal tunnel type symptoms that I can elicit. Has never had any cervical radicular symptoms. At some point he did have a sensation of pain in the left periscapular region. HOME MEDICATIONS: Really include no significant meds and despite for hypothyroidism, apparently takes nothing other than p.r.n. pain medications. ALLERGIES: NAPROSYN. SOCIAL HISTORY: Reveals him to be . 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 FAMILY HISTORY: Positive for strokes and coronary disease on I believe the paternal side of the family. REVIEW OF SYSTEMS: Completely unremarkable but no recent illnesses, hospitalizations, new issues referable to head, eyes, ears, nose and throat, cardiovascular, pulmonary, gastrointestinal, genitourinary, musculoskeletal, dermatologic, hematologic or endocrinologic systems other than hypothyroidism and neurologically, he is really having nothing other than some pain at the base of the left thumb and he really has no history of cervical radicular symptomatology. PHYSICAL EXAMINATION: VITAL SIGNS: Revealed a blood pressure of 130/90, pulse 96, respirations were 16, he was afebrile. GENERAL: He was in no apparent distress. Cranial nerves were intact. HEENT: Examination was normal. No carotid bruits were heard. LUNGS: Clear. HEART: Had a regular rhythm. No murmurs were appreciated. ABDOMEN: Soft, nontender. EXTREMITIES: Free of edema. Peripheral pulses were normal. There is no calf tenderness. NEUROLOGIC: On my examination, he is alert, oriented in 3 spheres, has normal cranial nerves, clear speech. Normal visual chapman, normal facial motility and strength. There is no drift or pronation sign, tremor, tics, choreiform activity. He does have a ganglion cystic type structure on the extensor tendon of the left thumb at about the level of the wrist and he has some pain to palpation over the deep medial aspect of the left thumb, but there is no Tinel sign and Phalen sign or other signs of a carpal tunnel and Spurling sign was performed and induces no cervical radicular symptomatology. Reflexes of the lower extremities 1+ symmetrical and uppers are the same. Toes are downgoing. No Gallito signs are seen. Muscle strength testing is quite normal in all tested joints as is sensation to vibration, light touch and temperature. LABORATORY STUDIES: Were all unremarkable. An MRI of the brain is normal. A duplex of the carotids is normal. At this point, I see no reason to go ahead with a cervical MRI as while these symptoms could be of cervical origin, there are now resolved and there is no provocative test positivity nor history to suggest prior symptomatology. The history I obtained suggested there was a bit of pressure in the left arm, almost anginal in nature and I would wonder if a cardiology consult should be obtained with plans to do an outpatient or perhaps even an immediate stress test just to clear the air regarding potential coronary disease as a cause of the left arm symptomatology. At present, however, neurology really does not have much more to offer. There has been nothing to suggest an acute stroke on imaging and clinically the man is free of deficits and has no obvious lesions in the carotid system on the right side, which may have produced the left arm symptomatology. TOVAD
--- NOTE | 2018-08-14 08:12 | Discharge Summary ---
Date of Service August 14, 2018 Admission HPI Per Admitting Provider This is 62-year-old male with past medical history significant for hypothyroidism presents with left hand numbness. 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 After his work he came to the ER and still having same symptoms numbness and heaviness of the left hand. He was worried because his both his parents had CABG and both of his brothers had a stroke. Denies any weakness. Initially he was not able to rn spine his hand but is okay now. Denies any headache no blurred visions no dizziness no chest pain no s hortness of breath no cough no fever no chills. Currently resting comfortably and hemodynamically stable.Speech is clear. Swallowing ok Admission Exam Per Admitting Provider Vital Signs (Past 24 Hours): Last Vital Signs Temp 36.4 C L 08/12/18 22:42 Pulse 72 08/12/18 23:54 Resp 16 08/12/18 23:54 BP 130/90 08/12/18 23:54 Pulse Ox 96 08/12/18 23:54 Physical Exam: General- Not in distress Head- atraumatic Eyes- PERRL, EOMI, anicteric ENT- oropharynx clear Neck- supple, no JVD, no adenopathy, carotids +2/2, no bruits appreciated Lungs- clear to auscultation and percussion Heart- regular rhythm; no murmur, no gallop Abdomen- normal bowel sounds, soft, nontender, no masses Extremities- no pretibial edema, no calf tenderness; peripheral pulses intact Neuro- alert, oriented x 3; PERRL, EOMI; no facial palsy; no dysarthria; motor 4/5 in left upper extremity and 5/5 in all other extremities finger to nose intact bilaterally, sensations and position sense intact, heel to guo test normal Skin- warm & dry Principal Diagnosis Left upper extremity numbness-no stroke, acute cardiac events ruled out Discharge Exam Constitutional WD/WN, vitals as above Eyes PERRL, conjunctivae normal, anicteric sclerae ENMT external ear and nose normal, oropharynx normal Neck trachea midline, no thyromegaly Respiratory normal respiratory effort, lungs clear to auscultation Cardiovascular RRR, no murmur, no edema Rate/Rhythm: regular rate and regular rhythm Heart Sounds: normal S1 and normal S2 Gastrointestinal (Abdomen) normal bowel sounds, soft, nontender, no hepatosplenomegaly Neurologic patellar DTR's 2+ bilat, sensation intact Discharge Data Allergies Allergy/AdvReac Type Severity Reaction Status Date / Time naproxen Allergy Unknown G I BLEED Unverified 08/12/18 23:02 Consultations 08/13/18 00:02 ED Decision to Admit Stat 08/13/18 01:29 Consult Case Management - Discharge Planning Routine Consult Case Management - Discharge Planning Routine 08/13/18 08:00 Consult Neurology Routine Ordered Studies 08/12/18 23:06 CT head/brain wo con Stat 08/13/18 01:29 US carotid doppler BI Urgent 08/13/18 02:25 MR brain wo/w con Stat Hospital Course (1) Paresthesia of left arm: Admitted with strokelike symptoms involving paresthesia of the left upper extremity No more symptoms since admission CT of the head and MRI did not show any stroke Carotid ultrasound did not show any significant carotid stenosis Echocardiogram showed normal LV function, no wall motion abnormality, no significant valvular stenosis and no interatrial shunt Lipid profile remain unremarkable Clinically a lot better Awaiting neurology evaluation and possible discharge this afternoon Left wrist ganglion cyst Complains to have some local discomfort Advised to have or 3 evaluation if continues to have symptoms (2) Hypothyroidism (acquired): ON SYNTHYROID Total Time Total Time Spent Total Time Spent (In Minutes): 35 minutes Total Time Includes: Examination of the Patient, Discharge Planning, Medication Reconciliation and Communication With Other Providers Discharge Plan Discharge Items Patient Disposition: Home - Self-Care Reason For Visit: LEFT UPPER EXTREMITY NUMBNESS Discharge Diagnosis: Left upper extremity numbness-no stroke, acute cardiac events ruled out Condition: Good Discharge Goals: Decrease discomfort and Improve function Activity: Resume your previous activity Non-emergency contact: Primary Care Provider Call non-emergency contact if: you have any medication questions and your symptoms worsen Follow-up/Referrals: Audie Nolen [Primary Care Provider] - (Your doctor's office will call you with appointment on Wednesday. Will need to have an outpatient stress test.) Diet: Heart Healthy Addtl Provider Instructions: Will need to have an outpatient stress test Risk Factors for Stroke: You can reduce your chances of stroke by working with your medical provider to adopt a healthy lifestyle. Some specific ways to lower your chance of stroke are: * If you are a smoker, now is the time to stop smoking cigarettes * If you are diabetic, improve the control of your blood sugars * Avoid excessive amounts of alcohol * Control high blood pressure * Lose weight if you are overweight * Be sure to lead an active lifestyle * Eat a healthy diet low in salt, cholesterol and fat You should know about other risk factors for stroke that you are unable to control. These include: * Age 55 years or older * Male gender * Certain racial groups: , or / * Family History of Stroke, Mini stroke or Heart Attack * Sickle Cell Disease Follow Up: It is important for you to keep your follow up appointments with your medical provider. Who to Call and When: Medical Emergencies: Call 911 immediately if you experience any of the following warning signs and symptoms of Stroke: * Sudden numbness or weakness of the face, arm or leg, especially on one side of the body * Sudden confusion, trouble speaking or understanding * Sudden trouble seeing in one or both eyes * Sudden trouble walking, dizziness, loss of balance or coordination * Sudden severe headache with no cause Do not delay calling 911 if you experience any warning signs or symptoms of a stroke. Delay in seeking medical attention may affect what treatments can be given to you. . Prescriptions: New atorvastatin 40 mg Tablet 40 mg PO QAM 30 Days Qty: 30 RF: 0 aspirin [Ecotrin Low Strength] 81 mg Tablet,Delayed Release (Dr/Ec) 81 mg PO QAM Qty: 30 RF: 0 No Action No Known Home Medications RF: 0 Stand-Alone Forms: [facility] Discharge Orders: Discharge Order (Routine); Ordered 08/13/18 Ordered By: Carlitos Garcia Admission Data Admit Date/Time: 08/13/18 00:42 Attending Provider: Carlitos Garcia Admit Provider: Efren Lane Primary Care Provider: Audie Nolen Other Providers: Efren Lane ; Coral Hernandez ; Matias Joshua ; Coral Connell ; Alona Narvaez ; Malachi Strickland ; Bria Centeno Service: Telemetry Other Interventions: Discharge Summary Assessment (RN) Last Done: 08/13/18 13:50 DC Date/Time DO NOT enter until pt leaves facility: 08/13/18 14:46
== END 2018-08-13 14:46 | disposition home or self-care (01) | DRG 93 ==
LOC: ED 22:38 → 2E 08-13 00:42

== ENCOUNTER 2022-08-12 03:59 | Inpatient (IN) ==
[2022-08-12] MEDS ORDERED: MoRPHine SULFATE 4 MG/ML 1 ML CARP\\VIAL IV STA (04:40)
[2022-08-12] MEDS ORDERED: ONDANSETRON INJ 2 MG/ML 2 ML VIAL IV STA (04:40)
--- NOTE | 2022-08-12 04:40 | Emergency Department Note ---
Impression & Plan Elevated troponin level, Elevated d-dimer, Shortness of breath, Abdominal pain, epigastric ED Provider Note CHIEF COMPLAINT: Shortness of breath, right upper quadrant pain HISTORY OF PRESENT ILLNESS: This 66-year-old male patient with a history of hypothyroidism presents to the emergency department with complaints of shortness of breath and right upper quadrant pain. The patient states his symptoms began about a week ago. He is followed by a "homeopathic nurse" explained that his gallbladder is likely inflamed. Per patient's he was started on a special diet about 3 days ago to help decrease the inflammation. Patient was also restarted on 2 different supplements. Patient states he is not able to breathe at night, particularly when lying flat. He denies any fevers, cough and chest pressure. REVIEW OF SYSTEMS: A review of systems was performed with positives and pertine nt negatives listed in the history of present illness. 10 systems were reviewed and are otherwise negative. ALLERGIES: see below MEDICATIONS: see below PMH: see below SOCIAL HISTORY: see below DDx: Reactive airway disease, pneumonia, pneumothorax, COPD, CHF, infections, cardiac ischemia, pulmonary embolism, biliary pathology, as well as other pathologies. PHYSICAL EXAM: Vital signs reviewed. General: Well-appearing 66-year-old male, in no significant distress. HEENT: No scleral icterus, PERRLA, neck supple. Atraumatic. Cardiovascular: Regular rate and rhythm, no extra sounds. Positive systolic ejection murmur Pulmonary: Crackles throughout the lower lung chapman bilaterally, normal work of breathing. Abdomen: Soft, tender to palpation in the right upper quadrant and epigastric region, nondistended, positive bowel sounds. Musculoskeletal: Atraumatic, no peripheral edema. Neurologic: Patient awake alert and oriented x 3, speech is clear Skin: Warm, dry, no rash EMERGENCY DEPARTMENT COURSE/MDM: This patient was evaluated and appeared to be in no significant distress. IV access was obtained and laboratory work was drawn. The patient refused a COVID swab x2. Laboratory work is fairly reassuring with a slight bump in his WBC. Liver enzymes are normal. Chest x- ray was performed and reveals some mild interstitial prominence which could be related to fluid overload or viral process. Patient was medicated with 324 mg of aspirin, 40 mg of IV Lasix. A D-dimer finally resulted at 2100 and high- sensitivity troponin of 67. CT angiogram of the chest was ordered. Ultrasound of the right upper quadrant to my interpretation reveals no evidence of acute cholecystitis. At this time the final read is pending. The case was discussed with Dr. Lane of the hospitalist service for admission and further management. Low-dose heparin drip with bolus was ordered. Patient and were made aware of the findings and plan and agreed. MONITORING: An order for cardiac monitoring was placed and the patient is noted to be in a normal sinus rhythm at 98 beats per minute. RADIOLOGY: Chest x-ray to my interpretation reveals mild CHF versus interstitial prominence at the bases bilaterally, otherwise defer to radiology's overread. Ultrasound of the right upper quadrant to my interpretation reveals no evidence of acute cholecystitis. Otherwise defer to radiology's overread EKG: To my interpretation reveals a sinus rhythm at 96 bpm. Prolonged QTc at 500, no PVC, no PAC. Normal appearing ST segments with poor quality baseline for interpretation. When compared to previous dated March 04, 2020, no significant change was found DISPOSITION:Home Past Med/Surg History Medical History (Updated 08/12/22 @ 07:07 by Linnea James MD) BPH (benign prostatic hyperplasia) GI bleed Hypothyroidism (acquired) Nausea and vomiting after administration of anesthetic agent Osteoarthritis Surgical History History of arthroscopy of right knee x2 History of bilateral inguinal hernia repair History of carpal tunnel surgery of right wrist History of colonoscopy History of esophagogastroduodenoscopy (EGD) History of left inguinal hernia repair History of repair of right rotator cuff History of tonsillectomy History of tooth extraction Hx of vasectomy Status post repair of nerve right hand Family History Mother Family history of reaction to anesthesia nausea Family history of diabetes mellitus Social History Smoking Status: Never smoker Second Hand Exposure: No; Hx Alcohol Use: No Hx Substance Use: No Preferred Language: Malagasy Communication Ability: Effective Welder Repair Required: No Beliefs That Will Affect Care: None marital status: Current Living Situation: Spouse Current Living Situation Comment: Lives with and 2 kids Feels Safe at Home: Yes Assistive Devices: Glasses Allergies Allergies Allergy/AdvReac Type Severity Reaction Status Date / Time naproxen Allergy Severe G I BLEED Verified 08/12/22 06:57 Home Meds Home Medications Medication Instructions Recorded Confirmed levothyroxine 50 mcg tablet 50 mcg PO QAM 02/28/19 06/13/19 Results & Data (ED) Vital Signs Vital Signs - 24 hr 08/12/22 04:04 08/12/22 04:22 08/12/22 04:27 Temperature 36.5 C Temperature Source Temporal Artery Scan Pulse Rate 90 97 H Pulse Rate [Apical] Respiratory Rate 20 Respiratory Effort / Characteristics Non-Labored Spontaneous Non-Labored Spontaneous Respiratory Depth Normal Normal Respiratory Pattern Regular Blood Pressure 140/94 Blood Pressure [Left Arm] Blood Pressure Mean 109 Blood Pressure Mean [Left Arm] Blood Pressure Position [Left Arm] Pulse Oximetry 100 Oxygen Delivery Method Room Air Room Air Oxygen Flow Rate Sepsis Recent Fever Within 48 Hours No Sepsis New/Unexplained Change in Mental Status No Sepsis Action Taken by Nursing No Action Required 08/12/22 04:29 08/12/22 04:32 08/12/22 06:02 Temperature Temperature Source Pulse Rate 98 H Pulse Rate [Apical] 99 H 100 H Respiratory Rate 20 20 24 Respiratory Effort / Characteristics Non-Labored Spontaneous Non-Labored Spontaneous Respiratory Depth Normal Normal Respiratory Pattern Blood Pressure Blood Pressure [Left Arm] 119/92 137/99 Blood Pressure Mean Blood Pressure Mean [Left Arm] 101 111 Blood Pressure Position [Left Arm] Sitting Lying Pulse Oximetry 92 92 93 Oxygen Delivery Method Room Air Room Air Room Air Oxygen Flow Rate Sepsis Recent Fever Within 48 Hours Sepsis New/Unexplained Change in Mental Status Sepsis Action Taken by Nursing 08/12/22 06:56 Temperature Temperature Source Pulse Rate Pulse Rate [Apical] 106 H Respiratory Rate 24 Respiratory Effort / Characteristics Non-Labored Spontaneous Respiratory Depth Normal Respiratory Pattern Blood Pressure Blood Pressure [Left Arm] 141/105 H Blood Pressure Mean Blood Pressure Mean [Left Arm] 117 Blood Pressure Position [Left Arm] Lying Pulse Oximetry 92 Oxygen Delivery Method Nasal Cannula Oxygen Flow Rate 2 Sepsis Recent Fever Within 48 Hours Sepsis New/Unexplained Change in Mental Status Sepsis Action Taken by [facility]dc Medications Current Medication List: was personally reviewed by me Laboratory Data Attestation: I reviewed the patient's lab results. 08/12/22 04:23 08/12/22 04:23 Lab Results 08/12/22 08/12/22 08/12/22 Range/Units 04:23 04:23 04:23 WBC 11.06 H (4.8-10.8) K/ul RBC 4.62 L (4.70-6.10) M/uL Hgb 14.2 (14.0-18.0) g/dl Hct 41.2 L (42.0-52.0) % MCV 89.2 (80.0-100.0) fL MCH 30.7 (25.0-34.0) pg MCHC 34.5 (32.0-36.0) g/dL RDW Std Deviation 42.6 (36.4-46.3) fL RDW Coeff of Aparna 13.2 (11.5-14.5) % Plt Count 267 (130-400) K/uL MPV 10.0 (9.4-12.4) fL Immature Gran % (Auto) 0.4 % Neut % (Auto) 68.1 % Lymph % (Auto) 23.5 % Mcclain % (Auto) 6.1 % Eos % (Auto) 1.3 % Baso % (Auto) 0.6 % Neut # (Auto) 7.53 H (1.40-6.50) K/uL Lymph # (Auto) 2.60 (1.2-3.4) K/uL Mcclain # (Auto) 0.68 H (0.11-0.59) K/uL Eos # (Auto) 0.14 (0-0.50) K/uL Baso # (Auto) 0.07 (0-0.2) K/uL Immature Gran # (Auto) 0.04 (0.01-0.20) K/uL PT (9.0-12.0) Seconds INR (0.9-1.1) APTT (21.0-31.0) Seconds PTT Ratio D-Dimer 2130 H* (0-500) ug/L FEU Sodium 129 L (136-145) mmol/L Potassium 3.9 (3.5-5.1) mmol/L Chloride 98 (98-107) mmol/L Carbon Dioxide 25 (21-32) mmol/L Anion Gap 6 (3-11) BUN 14 (6-23) mg/dl Creatinine 0.89 (0.6-1.4) mg/dl Est Cr Clr Drug Dosing 80.2 ml/min Est GFR ( Amer) 104.7 ml/min Est GFR (Non-Af Amer) 90.4 ml/min BUN/Creatinine Ratio 15.7 (10-20) Glucose 104 H (70-99(Fasting)) mg/dl Calcium 9.1 (8.5-10.1) mg/dl Total Bilirubin 1.0 (0.2-1.0) mg/dl AST 37 (13-39) U/L ALT 49 (7-52) U/L Alkaline Phosphatase 71 (34-104) U/L Troponin I High Sens 67.4 H* (0-20) pg/ml Total Protein 7.3 (6.0-8.3) gm/dl Albumin 4.1 (3.4-5.0) gm/dl Globulin 3.2 (2.5-4.0) gm/dl Albumin/Globulin Ratio 1.3 (0.9-2) SARS-CoV-2, RNA, NAAT (NEGATIVE) 08/12/22 08/12/22 Range/Units 04:23 Unknown WBC (4.8-10.8) K/ul RBC (4.70-6.10) M/uL Hgb (14.0-18.0) g/dl Hct (42.0-52.0) % MCV (80.0-100.0) fL MCH (25.0-34.0) pg MCHC (32.0-36.0) g/dL RDW Std Deviation (36.4-46.3) fL RDW Coeff of Aparna (11.5-14.5) % Plt Count (130-400) K/uL MPV (9.4-12.4) fL Immature Gran % (Auto) % Neut % (Auto) % Lymph % (Auto) % Mcclain % (Auto) % Eos % (Auto) % Baso % (Auto) % Neut # (Auto) (1.40-6.50) K/uL Lymph # (Auto) (1.2-3.4) K/uL Mcclain # (Auto) (0.11-0.59) K/uL Eos # (Auto) (0-0.50) K/uL Baso # (Auto) (0-0.2) K/uL Immature Gran # (Auto) (0.01-0.20) K/uL PT 12.8 H (9.0-12.0) Seconds INR 1.2 H (0.9-1.1) APTT 29.1 (21.0-31.0) Seconds PTT Ratio 1.1 D-Dimer (0-500) ug/L FEU Sodium (136-145) mmol/L Potassium (3.5-5.1) mmol/L Chloride (98-107) mmol/L Carbon Dioxide (21-32) mmol/L Anion Gap (3-11) BUN (6-23) mg/dl Creatinine (0.6-1.4) mg/dl Est Cr Clr Drug Dosing ml/min Est GFR ( Amer) ml/min Est GFR (Non-Af Amer) ml/min BUN/Creatinine Ratio (10-20) Glucose (70-99(Fasting)) mg/dl Calcium (8.5-10.1) mg/dl Total Bilirubin (0.2-1.0) mg/dl AST (13-39) U/L ALT (7-52) U/L Alkaline Phosphatase (34-104) U/L Troponin I High Sens (0-20) pg/ml Total Protein (6.0-8.3) gm/dl Albumin (3.4-5.0) gm/dl Globulin (2.5-4.0) gm/dl Albumin/Globulin Ratio (0.9-2) SARS-CoV-2, RNA, NAAT NEGATIVE (NEGATIVE) Administered Medications Discontinued Medications Aspirin (Aspirin Chew 324 Mg) 324 mg PO NOW STA Stop: 08/12/22 05:54 Last Admin: 08/12/22 05:57 Dose: 324 mg Documented By: BAM Furosemide (Furosemide 40 Mg/4 Ml Vial) 40 mg IV ONE ONE Stop: 08/12/22 05:54 Last Admin: 08/12/22 05:57 Dose: 40 mg Documented By: BAM Ioversol (Optiray 320 500ml) 125 ml IV ONCE ONE Stop: 08/12/22 06:53 Last Admin: 08/12/22 06:52 Dose: 113 ml Documented By: RHONDA Morphine Sulfate (Morphine Sulfate 4 Mg/Ml 1 Ml Carp\\Vial) 4 mg IV NOW STA Stop: 08/12/22 04:41 Last Admin: 08/12/22 05:31 Dose: Not Given Documented By: CC Ondansetron HCl (Ondansetron Inj 2 Mg/Ml 2 Ml Vial) 4 mg IV NOW STA Stop: 08/12/22 04:41 Last Admin: 08/12/22 05:31 Dose: Not Given Documented By: CC Discharge Plan Visit Data Chief Complaint: Respiratory Problems Stated Complaint: TROUBLE BREATHING-INFLAMMED GALL BLADDER ED Provider: Linnea James Discharge Problem: Elevated troponin level, Elevated d-dimer, Shortness of breath, Abdominal pain, epigastric Patient Disposition: Admitted As Inpatient Forms Stand Alone Forms: [facility] Prescriptions Prescriptions: No Action levothyroxine 50 mcg Tablet 50 mcg PO QAM Referrals Referrals: Audie Nolen MD [Primary Care Provider] -
[2022-08-12 05:32] LABS: Albumin Globulin Ratio 1.3 (0.9-2); Albumin Level 4.1 gm/dl (3.4-5.0); BUN Creatinine Ratio 15.7 (10-20); Calcium 9.1 mg/dl (8.5-10.1); Creatinine Clr Calc Pharmacy 80.2 ml/min; Est GFR (African American) 104.7 ml/min; Est GFR (Non-African American) 90.4 ml/min; Globulin 3.2 gm/dl (2.5-4.0); Potassium 3.9 mmol/L (3.5-5.1); Total Protein 7.3 gm/dl (6.0-8.3)
[2022-08-12 05:35] LABS: Basophils # (auto) 0.07 K/uL (0-0.2); Basophils % (auto) 0.6 %; Eosinophils # (auto) 0.14 K/uL (0-0.50); Eosinophils % (auto) 1.3 %; Hematocrit (blood only) 41.2 % (42.0-52.0); Hemoglobin 14.2 g/dl (14.0-18.0); Immature Granulocytes # (auto) 0.04 K/uL (0.01-0.20); Immature Granulocytes % (auto) 0.4 %; Lymphocytes % (auto) 23.5 %; Mean Corpuscular Hemoglobin 30.7 pg (25.0-34.0); Mean Corpuscular Hgb Conc 34.5 g/dL (32.0-36.0); Mean Corpuscular Volume 89.2 fL (80.0-100.0); Monocytes # (auto) 0.68 K/uL (0.11-0.59); Monocytes % (auto) 6.1 %; Neutrophils # (auto) 7.53 K/uL (1.40-6.50); Neutrophils % (auto) 68.1 %; Platelet Count 267 K/uL (130-400); RDW Coefficient of Variation 13.2 % (11.5-14.5); RDW Standard Deviation 42.6 fL (36.4-46.3); Red Blood Count 4.62 M/uL (4.70-6.10); White Blood Count 11.06 K/ul (4.8-10.8)
[2022-08-12 05:47] LABS: Troponin I High Sensitivity 67.4 pg/ml (0-20)
[2022-08-12] MEDS ORDERED: FUROSEMIDE 40 MG/4 ML VIAL IV ONE (05:53)
[2022-08-12] MEDS ORDERED: ASPIRIN CHEW 324 MG PO STA (05:53)
[2022-08-12] MEDS ORDERED: Heparin IV Adult Wt-Based Low-Dose WITH Bolus Protocol STA (05:55)
[2022-08-12] MEDS ORDERED: HEPARIN SOD (PORCINE) 1000 UNIT/ML IV ONE (06:10)
[2022-08-12 06:11] LABS: D Dimer 2130 ug/L FEU (0-500)
[2022-08-12] MEDS ORDERED: HEPARIN SODIUM/DEXTROSE 25,000 UNITS/500 ML BAG IV SCH (06:15)
[2022-08-12 06:17] LABS: INR 1.2 (0.9-1.1); Partial Thromboplastin Ratio 1.1; Partial Thromboplastin Time 29.1 Seconds (21.0-31.0); Prothrombin Time 12.8 Seconds (9.0-12.0)
[2022-08-12] MEDS ORDERED: OPTIRAY 320 500ml IV ONE (06:52)
[2022-08-12 07:01] LABS: Appearance Urine Clear (Clear); Bilirubin Urine Negative (Negative); Blood Urine Negative (Negative); Color Urine Yellow; Glucose Urine UA Negative (Negative); Ketones Urine Negative (Negative); Leukocyte Esterase Urine Negative (Negative); Nitrite Urine Negative (Negative); Protein Urine Negative (Negative); Specific Gravity Urine 1.009 (1.000-1.030); Urobilinogen Urine Negative (Negative)
--- NOTE | 2022-08-12 07:13 | Ultrasound Report ---
US gallbladder CLINICAL HISTORY: RUQ pain TECHNIQUE: Multiple real-time sonographic images of the right upper quadrant were obtained. Comparison: None available at the time of this dictation. FINDINGS: There is suggestion of minimal heterogeneity of the hepatic parenchyma. No focal mass lesions are see n. No intrahepatic ductal dilatation is seen. Gallbladder polyps are seen measuring up to 2 mm A sonographic Scherer's sign was not elicited by the finance associate. The common duct measures 0.3 cm in d iameter at the level of the hepatic artery. The distal pancreas is not visualized due to overlying b owel gas. The visualized portions of the pancreas are unremarkable. Pancreatic duct measures 2 mm. The right kidney shows normal echogenicity, cortical thickness and renal contour. The right kidney sh ows no evidence of hydronephrosis or mass. Trace free fluid is noted. IMPRESSION: No acute abnormalities and in particular no evidence of acute cholecystitis. ACT 112: Negative or not required by law. Electronically signed by: Josh Castro M.D. 08/12/2022 7:10 AM
--- NOTE | 2022-08-12 07:16 | CT Scan Report ---
CT angio chest PE protocol CLINICAL HISTORY: PE TECHNIQUE: Multidetector row helical CT of the chest was performed with angiographic protocol. [place] l and sagittal reformations were obtained. Coronal and sagittal MIPS were obtained from the axial tiana a set and were submitted for review. Automated dose lowering techniques and/or adjustment according to patient size were utilized for this exam. CT DOSE: 342.48 mGy.cm Comparison: Comparison is made to chest radiograph 08/12/2022 FINDINGS: Lungs and pleura: There is a small right and trace left pleural effusion. Smooth interlobular septal thickening is seen. No suspicious pulmonary nodules. Heart and pericardium: Cardiomegaly is seen with biatrial enlargement. Vessels: No evidence of pulmonary embolism. Mediastinum and sajan: Subcentimeter lymph nodes are seen. Chest wall and lower neck: Unremarkable. Abdomen: Trace ascites is seen. Bones: Degenerative changes in the thoracic spine. IMPRESSION: 1. No pulmonary embolus is seen. 2. Interstitial thickening likely representing interstitial pulmonary edema. 3. Small right and trace left pleural effusions. ACT 112: Negative or not required by law. Electronically signed by: Josh Castro M.D. 08/12/2022 7:15 AM
--- NOTE | 2022-08-12 07:19 | XRay Report ---
XR chest 1V portable CLINICAL HISTORY: Dyspnea TECHNIQUE: Single frontal radiograph of the chest was obtained. Comparison: Comparison is made to chest radiograph 319 FINDINGS: No lines and tubes are seen. Cardiomegaly is noted. The aortic arch is calcified. Prominence and ceph alization of the vasculature is seen. No evidence of pleural effusion or pneumothorax. IMPRESSION: Cardiomegaly and mild pulmonary edema. ACT 112: Negative or not required by law. Electronically signed by: Josh Castro M.D. 08/12/2022 7:17 AM
--- NOTE | 2022-08-12 08:20 | History and Physical Report ---
DATE OF ADMISSION: 08/12/2022 CHIEF COMPLAINT: Shortness of breath and right upper quadrant abdominal pain. HISTORY OF PRESENT ILLNESS: This is a 66-year-old male with past medical history significant for hypothyroidism, not on any medication currently, presents with shortness of breath and right upper quadrant abdominal pain. The patient since last Wednesday is having shortness of breath while he is lying down and is not able to take breath, but while ambulating he is okay. He denies any chest pain, however, he developed right upper quadrant abdominal pain with nausea. As this has progressively getting worsened, he came to the ER. He has generally sees homeopathic doctors for his conditions. He saw a homeopathic doctor on Wednesday and was given medication for inflammation of the gallbladder and abdomen. He states he is not taking thyroid medications. He denies any chest pain. No nausea, no vomiting, no headache, no dizziness, no blurred visions, no earache, no runny nose, no sore throat, no cough, and no fevers. Normal bowel and bladder movements. No swelling in the legs. Hemodynamically, he is stable. ALLERGIES: NAPROXEN. PAST MEDICAL HISTORY: As mentioned above. PAST SURGICAL HISTORY: Colonoscopy, colonoscopy with biopsy, tonsillectomy, arthroscopic meniscectomy, left inguinal hernia repair, and vasectomy. MEDICATIONS: Taking homeopathic medications. FAMILY HISTORY: Significant for uncle who has prostate cancer, mother has diabetes, father has CABG and CT, mother has CABG in mid 80s and pacemaker, sister most likely of PE at age of 41, and brother has several CVAs. SOCIAL HISTORY: . No smoking, no alcohol, and no drug use. REVIEW OF SYSTEMS: As per HPI. Rest of review of systems is negative. PHYSICAL EXAMINATION: GENERAL: The patient is of moderate build, not in acute distress. VITAL SIGNS: Temperature 36.5, pulse 106, respiratory rate 24, blood pressure 141/105, and oxygen saturation was 92% on 2 L. HEENT: Pupils equal, round, and reactive to light. Oral mucosa moist. NECK: No JVD and no neck masses. CARDIOVASCULAR: S1 and S2 heard. Regular rate and rhythm. No murmur. No gallop. RESPIRATORY SYSTEM: Normal AP diameter. No accessory muscle use. No wheezing or crackles. ABDOMEN: Soft. Bowel sounds present. Right upper quadrant tenderness present. No guarding. No rigidity. CENTRAL NERVOUS SYSTEM: Cranial nerves II-XII grossly intact, nonfocal. EXTREMITIES: No edema. No erythema. LABORATORY DATA: WBC 11.06, hemoglobin 14.2, hematocrit 41.2, and platelets 267. PT 12.8, INR 1.2, and APTT 29.1. D-dimer 2130. Sodium 129, potassium 3.9, chloride 98, CO2 of 25, BUN 14, creatinine 0.8, serum glucose 104, and calcium 9.1. Total bilirubin 1, AST 37, ALT 49, and alkaline phosphatase 71. Troponin I high sensitivity 67.4. Urinalysis negative. SARS-CoV-2 rapid test negative. IMAGING DATA: CTA chest results are pending. Gallbladder ultrasound results are pending. Chest x-ray: No acute findings. EKG: Sinus rhythm with marked sinus arrhythmia at rate of 96, prolonged QT noted, no significant change was found. ASSESSMENT AND PLAN: This is a 66-year-old male, who presents with shortness of breath and right upper quadrant abdominal pain. 1. Shortness of breath. The patient has shortness of breath when lying down and when taking deep breath. His D-dimer is elevated. CTA chest was done results pending. Er started on low-dose IV heparin will be continued for now. We will follow the final report of the CAT scan. Closely monitor in the med tele. 2. Elevated troponin, mostly demand ischemia. We will follow the serial enzymes, echocardiogram, and consult cardiology. 3. Hyponatremia. Getting fluids and we will follow the repeat labs. 4. Right upper quadrant abdominal pain. LFTs are okay. We will follow the gallbladder ultrasound, and if the gallbladder ultrasound shows any gallbladder disease, we will consult GI. 5. History of hypothyroidism, not taking medication. We will follow the thyroid profile. 6. Hypertension, probably from the situation and we will follow the blood pressure. 7. Prolonged qt . To avoid qt prolonging meds. Will follow repeat ekg. 8. Deep venous thrombosis prophylaxis, on IV heparin. DISPOSITION: Closely monitor in the med tele. Expect to discharge home and follow with family doctor. Level 1 full code. Job ID: [id number] [facility]
[2022-08-12] MEDS ORDERED: POLYETHYLENE (MIRALAX) 17 GM PACK PO PRN (08:55)
[2022-08-12] MEDS ORDERED: ONDANSETRON INJ 2 MG/ML 2 ML VIAL IV PRN (08:55)
[2022-08-12] MEDS ORDERED: NITROGLYCERIN SL 0.4 MG/TAB TAB SL PRN (08:55)
[2022-08-12] MEDS ORDERED: ACETAMINOPHEN 325 MG TAB PO PRN (08:55)
[2022-08-12] MEDS ORDERED: MoRPHine SULFATE 4 MG/ML 1 ML CARP\\VIAL IV PRN (08:55)
[2022-08-12] MEDS: SODIUM CHLORIDE 0.9% 1000ML 1,000 ML IV SCH ×2 (09:08→22:22)
--- NOTE | 2022-08-12 10:21 | CT Scan Report ---
CT abd pelvis wo con CLINICAL HISTORY: abdominal pain TECHNIQUE: Helical axial images of the abdomen and pelvis were obtained. Automated dose lowering tech niques and/or adjustment according to patient size were utilized for this exam. This exam was perfor med without intravenous contrast. CT DOSE: 319.87 mGy.cm COMPARISON: None available at the time of this dictation. FINDINGS: Lower chest: For findings above the diaphragm, please see CT chest performed same day. Liver: Unremarkable. No focal lesions are seen. Gallbladder and biliary tree: No calcified gallstones. Normal caliber wall. No intra- or extrahepatic biliary ductal dilation. Pancreas: Unremarkable, no focal lesions. Spleen: Unremarkable. Adrenals: Unremarkable. Kidneys and ureters: Unremarkable. Bladder: Diffuse homogeneous wall thickening is seen. Reproductive organs: Prostatic calcifications are seen which may represent prior hemorrhage or granul omatous disease. Bowel: The appendix is normal. Lymph nodes Retroperitoneal: Unremarkable. Pelvic: Unremarkable. Mesenteric: Unremarkable. Peritoneum: Normal. Vessels: Atherosclerotic calcifications are seen. Abdominal wall: Left fat containing inguinal hernia is seen. A density in the left inguinal canal may represent fluid or undescended testis. Hernia repair mesh is noted in the bilateral inguinal canals. Bones: Degenerative changes in the visualized spine. IMPRESSION: 1. No acute abnormalities are seen to explain right upper quadrant pain. 2. Left fat-containing inguinal hernia. 3. Bladder wall thickening compatible with chronic outlet obstruction in this patient with prostatom egaly. 4. Additional findings as above. 5. Please see CT chest performed same day for findings above the diaphragm. ACT 112: Negative or not required by law. Electronically signed by: Josh Castro M.D. 08/12/2022 10:20 AM
--- NOTE | 2022-08-12 13:02 | Surgery Consultation ---
Date of Consultation August 12, 2022 Assessment & Plan (1) RUQ abdominal pain: (2) Shortness of breath: (3) Elevated troponin level: Plan 66 year-old male presented to ED with complaint of RUQ abdominal pain and bloating that started on Edi and then increasing shortness of breath when lying flat. Ultrasound and CT scan of abdomen and pelvis unremarkable. CTA of chest showing no PE. Troponin is elevated. Plan: Given normal ultrasound/CT scan abdomen/pelvis findings would recommend HIDA scan to further evaluate for any biliary obstruciton vs cholecystitis. Labs do not suggest biliary obstruction. Given the elevated troponin and new shortness of breath when lying flat, consult cardiology Keep NPO continue medical management Will await HIDA scan results Dr. Ingram has seen and examined pt, agrees with above. History of Present Illness Reason for Consultation: RUQ abdominal pain Requesting Physician: Mani Beal MD Attending Physician: Mani Beal MD History of Present Illness Ciro is a 66 year-old male who presented to ED with complaint of shortness of breath when lying down and RUQ abdominal pain. Patient and at bedside said that they noticed abdominal bloating and pain that began on Wednesday . States he felt like he had to belch but was unable to and felt really bloated. Then started having shortness of breath when lying flat. No chest pain, palpitation, or shortness of breath when sitting up or when ambulating. See homeopathic doctor and she felt he had inflamed gallbladder. ER work-up included labs which showed no elevation in wbc, t. bili, lfts, or alk phos. Ultrasound showing small 2 mm gallbladder polyps however no signs of acute cholecystitis. CT scan of abdomen/pelvis with IV contrast unremarkable. CT chest showing bilateral pleural effusions and interstitial pulmonary edema however no pulmonary embolism. Troponin elevated at 60. States he is not having much abdominal pain now. Does not feel bloated anymore. Currently has oxygen on via nasal cannula. Allergies Allergy/AdvReac Type Severity Reaction Status Date / Time naproxen Allergy Severe G I BLEED Verified 08/12/22 06:57 Home Medications Medication Instructions Recorded Confirmed Type No Known Home Medications 08/12/22 08/12/22 History Patient History Medical History (Updated 08/12/22 @ 13:42 by Мария Larson PA-C) BPH (benign prostatic hyperplasia) GI bleed Hypothyroidism (acquired) Nausea and vomiting after administration of anesthetic agent Osteoarthritis Surgical History History of arthroscopy of right knee x2 History of bilateral inguinal hernia repair History of carpal tunnel surgery of right wrist History of colonoscopy History of esophagogastroduodenoscopy (EGD) History of left inguinal hernia repair History of repair of right rotator cuff History of tonsillectomy History of tooth extraction Hx of vasectomy Status post repair of nerve right hand Family History Mother Family history of reaction to anesthesia nausea Family history of diabetes mellitus Social History Smoking Status: Former smoker Second Hand Exposure: No; Hx Alcohol Use: No Hx Substance Use: No Preferred Language: Icelandic Communication Ability: Effective Protection Consultant Required: No Beliefs That Will Affect Care: None marital status: Current Living Situation: Spouse Current Living Situation Comment: Lives with and 2 kids Feels Safe at Home: Yes Safety Concerns: Feels Safe At This Time Assistive Devices: Glasses Physical Exam Constitutional: cooperative and comfortable; no acute distress, not ill appearing and not combative Neck: normal visual inspection and trachea midline Respiratory: normal respiratory effort; no respiratory distress, no labored breathing and no retractions Gastrointestinal (Abdomen): Inspection/Auscultation: abdomen normal to inspection; abdomen not distended Percussion/Palpation: abdomen soft; abdomen nontender, no guarding, abdomen not rigid and abdomen not firm Skin: no rashes, warm and dry no jaundice Psychiatric: A+Ox3, euthymic affect Results & Data ([facility]) Vital Signs (Past 12 Hours) Vital Signs Temp Pulse Pulse Pulse Resp BP BP 08/12/22 08:56 08/12/22 08:56 36.4 C L 84 08/12/22 11:25 36.3 C L 88 18 127/92 08/12/22 07:30 115 H 33 H 08/12/22 07:00 98 H 31 H 08/12/22 07:00 124/97 08/12/22 06:56 141/105 H 08/12/22 06:56 103 H 25 H 08/12/22 06:35 08/12/22 06:03 98 H 25 H 08/12/22 06:03 137/99 08/12/22 06:00 102 H 37 H 08/12/22 06:00 141/116 H 08/12/22 05:30 107 H 27 H 08/12/22 05:30 133/97 08/12/22 05:29 103 H 31 H 08/12/22 04:30 97 H 24 08/12/22 04:23 119/92 08/12/22 04:23 97 H 23 08/12/22 04:21 95 H 26 H 08/12/22 06:56 106 H 24 141/105 H 08/12/22 06:02 100 H 24 137/99 08/12/22 04:32 98 H 20 08/12/22 04:29 99 H 20 119/92 08/12/22 04:27 08/12/22 04:22 97 H 08/12/22 04:04 36.5 C 90 20 140/94 BP Pulse Ox O2 Del Method O2 Flow Rate 08/12/22 08:56 Nasal Cannula 2 08/12/22 08:56 128/85 100 Nasal Cannula 2 08/12/22 11:25 98 Room Air 08/12/22 07:30 99 Nasal Cannula 2 08/12/22 07:00 08/12/22 07:00 08/12/22 06:56 08/12/22 06:56 08/12/22 06:35 94 08/12/22 06:03 95 08/12/22 06:03 08/12/22 06:00 08/12/22 06:00 08/12/22 05:30 08/12/22 05:30 08/12/22 05:29 93 08/12/22 04:30 92 08/12/22 04:23 08/12/22 04:23 92 08/12/22 04:21 08/12/22 06:56 92 Nasal Cannula 2 08/12/22 06:02 93 Room Air 08/12/22 04:32 92 Room Air 08/12/22 04:29 92 Room Air 08/12/22 04:27 Room Air 08/12/22 04:22 08/12/22 04:04 100 Room Air Diagnostic Findings CT abd pelvis wo con CLINICAL HISTORY: abdominal pain TECHNIQUE: Helical axial images of the abdomen and pelvis were obtained. Automated dose lowering techniques and/or adjustment according to patient size were utilized for this exam. This exam was performed without intravenous contrast. CT DOSE: 319.87 mGy.cm COMPARISON: None available at the time of this dictation. FINDINGS: Lower chest: For findings above the diaphragm, please see CT chest performed same day. Liver: Unremarkable. No focal lesions are seen. Gallbladder and biliary tree: No calcified gallstones. Normal caliber wall. No intra- or extrahepatic biliary ductal dilation. Pancreas: Unremarkable, no focal lesions. Spleen: Unremarkable. Adrenals: Unremarkable. Kidneys and ureters: Unremarkable. Bladder: Diffuse homogeneous wall thickening is seen. Reproductive organs: Prostatic calcifications are seen which may represent prior hemorrhage or granulomatous disease. Bowel: The appendix is normal. Lymph nodes Retroperitoneal: Unremarkable. Pelvic: Unremarkable. Mesenteric: Unremarkable. Peritoneum: Normal. Vessels: Atherosclerotic calcifications are seen. Abdominal wall: Left fat containing inguinal hernia is seen. A density in the left inguinal canal may represent fluid or undescended testis. Hernia repair mesh is noted in the bilateral inguinal canals. Bones: Degenerative changes in the visualized spine. IMPRESSION: 1. No acute abnormalities are seen to explain right upper quadrant pain. 2. Left fat-containing inguinal hernia. 3. Bladder wall thickening compatible with chronic outlet obstruction in this patient with prostatomegaly. 4. Additional findings as above. 5. Please see CT chest performed same day for findings above the diaphragm. US gallbladder CLINICAL HISTORY: RUQ pain TECHNIQUE: Multiple real-time sonographic images of the right upper quadrant were obtained. Comparison: None available at the time of this dictation. FINDINGS: There is suggestion of minimal heterogeneity of the hepatic parenchyma. No focal mass lesions are seen. No intrahepatic ductal dilatation is seen. Gallbladder polyps are seen measuring up to 2 mm A sonographic Scherer's sign was not elicited by the explosive ordnance disposal specialist. The common duct measures 0.3 cm in diameter at the level of the hepatic artery. The distal pancreas is not visualized due to overlying bowel gas. The visualized portions of the pancreas are unremarkable. Pancreatic duct measures 2 mm. The right kidney shows normal echogenicity, cortical thickness and renal contour. The right kidney shows no evidence of hydronephrosis or mass. Trace free fluid is noted. IMPRESSION: No acute abnormalities and in particular no evidence of acute cholecystitis. CT angio chest PE protocol CLINICAL HISTORY: PE TECHNIQUE: Multidetector row helical CT of the chest was performed with angiographic protocol. Coronal and sagittal reformations were obtained. Coronal and sagittal MIPS were obtained from the axial data set and were submitted for review. Automated dose lowering techniques and/or adjustment according to patient size were utilized for this exam. CT DOSE: 342.48 mGy.cm Comparison: Comparison is made to chest radiograph 08/12/2022 FINDINGS: Lungs and pleura: There is a small right and trace left pleural effusion. Smooth interlobular septal thickening is seen. No suspicious pulmonary nodules. Heart and pericardium: Cardiomegaly is seen with biatrial enlargement. Vessels: No evidence of pulmonary embolism. Mediastinum and sajan: Subcentimeter lymph nodes are seen. Chest wall and lower neck: Unremarkable. Abdomen: Trace ascites is seen. Bones: Degenerative changes in the thoracic spine. IMPRESSION: 1. No pulmonary embolus is seen. 2. Interstitial thickening likely representing interstitial pulmonary edema. 3. Small right and trace left pleural effusions.
--- NOTE | 2022-08-12 16:41 | Hospitalist Progress Note ---
Date of Service August 12, 2022 Assessment & Plan (1) RUQ abdominal pain: Plan: per admitting service notes with addendum: ASSESSMENT AND PLAN: This is a 66-year-old male, who presents with shortness of breath and right upper quadrant abdominal pain. 4. Right upper quadrant abdominal pain. LFTs are okay. We will follow the gallbladder ultrasound, and if the gallbladder ultrasound shows any gallbladder disease, we will consult GI. CT abdomen/pelvis: Unremarkable HIDA scan: Pending General surgery consulted 1. Shortness of breath. The patient has shortness of breath when lying down and when taking deep breath. His D-dimer is elevated. CTA chest was done results pending. Er started on low-dose IV heparin will be continued for now. We will follow the final report of the CAT scan. Closely monitor in the med tele. CT angio chest: Negative for acute PE, no pleural effusion or pneumonia We will order Doppler ultrasound of the legs Wean of oxygen 2. Elevated troponin, mostly demand ischemia. No cardiac symptoms Troponin 67, 80, 76 EKG: No acute ischemia or infarct 3. Hyponatremia. Getting fluids and we will follow the repeat labs. Repeat labs in a.m. 5. History of hypothyroidism, not taking medication. TSH normal 6. Hypertension, probably from the situation and we will follow the blood pressure. BP stable overall 7. Prolonged qt . To avoid qt prolonging meds. Will follow repeat ekg. Repeat EKG tomorrow 8. Deep venous thrombosis prophylaxis SCDs for now Admission and Anticipated Discharge Date Admission Date: August 12, 2022 Subjective Follow-up for right upper quadrant pain with shortness of breath, etc. Seen resting in bed, comfortable on 2 L of oxygen In good spirits States he feels improved overall Still having some mild right upper quadrant pain, but no nausea, fevers Reports breathing is fine No chest pain, palpitations, dizziness No other symptoms Review of Systems Review of Systems: all noted and negative except for above Physical Exam Physical Exam: General- oriented x 3, not in distress, speaks in sentences with no effort or accessory muscle use Eyes- anicteric Neck- no JVD Lungs- clear breath sounds bilaterally, no rales/wheezes Heart- normal rate, regular rhythm; no murmurs Abdomen- normal bowel sounds, nondistended, soft, mild right upper quadrant tenderness Extremities- no pretibial edema, no calf tenderness Neuro- alert, oriented x 3; no gross focal neurologic deficits Skin- warm & dry Results & Data Results & Data ([facility]) Vital Signs (Past 12 Hours) Vital Signs Temp Pulse Pulse Pulse Resp BP BP 08/12/22 14:33 101 H 08/12/22 09:08 92 H 08/12/22 14:57 36.3 C L 93 H 18 127/90 08/12/22 08:56 08/12/22 08:56 36.4 C L 84 08/12/22 11:25 36.3 C L 88 18 127/92 08/12/22 07:30 115 H 33 H 08/12/22 07:00 98 H 31 H 08/12/22 07:00 124/97 08/12/22 06:56 141/105 H 08/12/22 06:56 103 H 25 H 08/12/22 06:35 08/12/22 06:03 98 H 25 H 08/12/22 06:03 137/99 08/12/22 06:00 102 H 37 H 08/12/22 06:00 141/116 H 08/12/22 05:30 107 H 27 H 08/12/22 05:30 133/97 08/12/22 05:29 103 H 31 H 08/12/22 06:56 106 H 24 141/105 H 08/12/22 06:02 100 H 24 137/99 BP Pulse Ox O2 Del Method O2 Flow Rate 08/12/22 14:33 08/12/22 09:08 08/12/22 14:57 93 Room Air 08/12/22 08:56 Nasal Cannula 2 08/12/22 08:56 128/85 100 Nasal Cannula 2 08/12/22 11:25 98 Room Air 08/12/22 07:30 99 Nasal Cannula 2 08/12/22 07:00 08/12/22 07:00 08/12/22 06:56 08/12/22 06:56 08/12/22 06:35 94 08/12/22 06:03 95 08/12/22 06:03 08/12/22 06:00 08/12/22 06:00 08/12/22 05:30 08/12/22 05:30 08/12/22 05:29 93 08/12/22 06:56 92 Nasal Cannula 2 08/12/22 06:02 93 Room Air all noted and reviewed including below
--- NOTE | 2022-08-12 16:44 | Nuclear Medicine Report ---
NUCLEAR HEPATOBILIARY SCAN CLINICAL HISTORY: Right upper quadrant abdominal pain. COMPARISON STUDY: Abdominal ultrasound and CT dated 08/12/2022. TECHNIQUE: Dynamic images of the liver and anterior abdomen were obtained every 5 minutes for a total of 60 minutes following the IV administration of 5.2 mCi of technetium 99m Mebrofenin. FINDINGS: The hepatobiliary scan shows prompt and homogeneous hepatic uptake. There is visualized act ivity within the intra and extrahepatic biliary tree at 10 minutes, and within the gallbladder at 15 minutes. There is normal biliary to bowel transit, with small bowel visualized by 45 minutes. IMPRESSION: Normal nuclear hepatobiliary scan. There is no scintigraphic evidence of cholecystitis. ACT 112: Negative or not required by law. Electronically signed by: David Short M.D. 08/12/2022 4:43 PM
--- NOTE | 2022-08-13 06:05 | Electrocardiogram Report ---
Test Reason : Blood Pressure : / mmHG Vent. Rate : 096 BPM Atrial Rate : 096 BPM P-R Int : 164 ms QRS Dur : 112 ms QT Int : 396 ms P-R-T Axes : 077 073 074 degrees QTc Int : 500 ms Sinus rhythm Premature atrial complexes Abnormal ECG When compared with ECG of 04-MAR-2020 08:43, No significant change was found Confirmed by Ruben Wise ([id number]) on 08/13/2022 6:04:53 AM Referred By: REFERRED SELF Confirmed By:Ruben Wise
[2022-08-13 06:27] LABS: Basophils # (auto) 0.06 K/uL (0-0.2); Basophils % (auto) 0.7 %; Eosinophils # (auto) 0.16 K/uL (0-0.50); Hematocrit (blood only) 38.4 % (42.0-52.0); Hemoglobin 13.3 g/dl (14.0-18.0); Immature Granulocytes # (auto) 0.03 K/uL (0.01-0.20); Immature Granulocytes % (auto) 0.4 %; Lymphocytes # (auto) 1.79 K/uL (1.2-3.4); Lymphocytes % (auto) 22.2 %; Mean Corpuscular Hemoglobin 30.5 pg (25.0-34.0); Mean Corpuscular Hgb Conc 34.6 g/dL (32.0-36.0); Mean Corpuscular Volume 88.1 fL (80.0-100.0); Mean Platelet Volume 9.5 fL (9.4-12.4); Monocytes # (auto) 0.53 K/uL (0.11-0.59); Monocytes % (auto) 6.6 %; Neutrophils % (auto) 68.1 %; Platelet Count 240 K/uL (130-400); RDW Coefficient of Variation 13.2 % (11.5-14.5); RDW Standard Deviation 42.2 fL (36.4-46.3); Red Blood Count 4.36 M/uL (4.70-6.10); White Blood Count 8.07 K/ul (4.8-10.8)
[2022-08-13 06:44] LABS: BUN Creatinine Ratio 18.8 (10-20); Calcium 8.5 mg/dl (8.5-10.1); Creatinine Clr Calc Pharmacy 79.2 ml/min; Est GFR (African American) 106.7 ml/min; Est GFR (Non-African American) 92.1 ml/min; Magnesium 1.8 mg/dl (1.7-2.4); Potassium 3.5 mmol/L (3.5-5.1)
--- NOTE | 2022-08-13 06:55 | Ultrasound Report ---
ULTRASOUND BILATERAL LOWER EXTREMITY VENOUS CLINICAL HISTORY: Elevated d-dimer. COMPARISON STUDY: No priors. TECHNIQUE: Real-time, grayscale, and color Doppler sonography of the deep veins of the right and left lower extremity was performed from the inguinal crease to the calf. Compression and augmentation wer e utilized. FINDINGS: There is no sonographic evidence of deep venous thrombosis identified in the right or left lower extremity. The common femoral, superficial femoral, and popliteal veins are patent and normally compressible bilaterally. The greater saphenous vein and the profunda femoris vein at the junction w ith the common femoral vein are clear in both legs. The visualized calf veins are patent bilaterally. A left popliteal cyst measures 5.7 x 1.6 x 3.3 cm. IMPRESSION: 1. There is no sonographic evidence of deep venous thrombosis identified in the right or left lower e xtremity. 2. Left popliteal cyst. ACT 112: Negative or not required by law. Electronically signed by: David Short M.D. 08/13/2022 6:53 AM
--- NOTE | 2022-08-13 11:32 | Surgery Progress Note ---
Date of Service August 13, 2022 Assessment & Plan (1) RUQ abdominal pain: Plan: resolved (2) Shortness of breath: Plan: resolved (3) Elevated troponin level: Plan 66 year-old male presented to ED with complaint of RUQ abdominal pain and bloating that started on Wednesday and then increasing shortness of breath when lying flat. Ultrasound and CT scan of abdomen and pelvis unremarkable. CTA of chest showing no PE. Troponin is elevated. HIDA scan without cholecystitis or biliary obstruction Plan: There is no indication for cholecystectomy based on normal imaging. Should have 6 month-yearly ultrasound for gallbladder polyp. Our services signing off, please call with questions/concerns Admission and Anticipated Discharge Date Admission Date: August 12, 2022 Subjective no abdominal pain tolerated diet no n,v Physical Exam Constitutional: WD/WN, vitals as above cooperative and comfortable; no acute distress and not ill appearing Neck: normal visual inspection and trachea midline Respiratory: normal respiratory effort; no respiratory distress, no labored breathing and no retractions no longer on oxygen via nasal cannula Skin: no rashes, warm and dry no jaundice Psychiatric: A+Ox3, euthymic affect Results & Data ([facility]) Vital Signs (Past 12 Hours) Vital Signs Temp Pulse Pulse Resp BP BP Pulse Ox 08/13/22 06:00 94 H 08/13/22 10:47 36.4 C L 90 18 126/87 98 08/13/22 07:00 08/13/22 07:10 36.5 C 101 H 18 124/85 96 08/13/22 04:00 36.8 C 93 H 20 115/78 92 08/13/22 00:00 95 H O2 Del Method 08/13/22 06:00 08/13/22 10:47 Room Air 08/13/22 07:00 Room Air 08/13/22 07:10 Room Air 08/13/22 04:00 Room Air 08/13/22 00:00 Laboratory Results 08/13/22 08/13/22 08/12/22 Range/Units 05:33 05:33 14:45 WBC 8.07 (4.8-10.8) K/ul RBC 4.36 L (4.70-6.10) M/uL Hgb 13.3 L (14.0-18.0) g/dl Hct 38.4 L (42.0-52.0) % MCV 88.1 (80.0-100.0) fL MCH 30.5 (25.0-34.0) pg MCHC 34.6 (32.0-36.0) g/dL RDW Std Deviation 42.2 (36.4-46.3) fL RDW Coeff of Aparna 13.2 (11.5-14.5) % Plt Count 240 (130-400) K/uL MPV 9.5 (9.4-12.4) fL Immature Gran % (Auto) 0.4 % Neut % (Auto) 68.1 % Lymph % (Auto) 22.2 % Harmon % (Auto) 6.6 % Eos % (Auto) 2.0 % Baso % (Auto) 0.7 % Neut # (Auto) 5.50 (1.40-6.50) K/uL Lymph # (Auto) 1.79 (1.2-3.4) K/uL Harmon # (Auto) 0.53 (0.11-0.59) K/uL Eos # (Auto) 0.16 (0-0.50) K/uL Baso # (Auto) 0.06 (0-0.2) K/uL Immature Gran # (Auto) 0.03 (0.01-0.20) K/uL Sodium 138 D (136-145) mmol/L Potassium 3.5 (3.5-5.1) mmol/L Chloride 105 (98-107) mmol/L Carbon Dioxide 26 (21-32) mmol/L Anion Gap 7 (3-11) BUN 16 (6-23) mg/dl Creatinine 0.85 (0.6-1.4) mg/dl Est Cr Clr Drug Dosing 79.2 ml/min Est GFR ( Amer) 106.7 ml/min Est GFR (Non-Af Amer) 92.1 ml/min BUN/Creatinine Ratio 18.8 (10-20) Glucose 77 (70-99(Fasting)) mg/dl Calcium 8.5 (8.5-10.1) mg/dl Magnesium 1.8 (1.7-2.4) mg/dl Troponin I High Sens (0-20) pg/ml TSH (0.300-4.500) uIu/ml Hepatitis C Ab (EIA) Pending Hep C Ab Signal/Cutoff Pending 08/12/22 08/12/22 08/12/22 Range/Units 14:45 10:37 10:37 WBC (4.8-10.8) K/ul RBC (4.70-6.10) M/uL Hgb (14.0-18.0) g/dl Hct (42.0-52.0) % MCV (80.0-100.0) fL MCH (25.0-34.0) pg MCHC (32.0-36.0) g/dL RDW Std Deviation (36.4-46.3) fL RDW Coeff of Aparna (11.5-14.5) % Plt Count (130-400) K/uL MPV (9.4-12.4) fL Immature Gran % (Auto) % Neut % (Auto) % Lymph % (Auto) % Harmon % (Auto) % Eos % (Auto) % Baso % (Auto) % Neut # (Auto) (1.40-6.50) K/uL Lymph # (Auto) (1.2-3.4) K/uL Harmon # (Auto) (0.11-0.59) K/uL Eos # (Auto) (0-0.50) K/uL Baso # (Auto) (0-0.2) K/uL Immature Gran # (Auto) (0.01-0.20) K/uL Sodium (136-145) mmol/L Potassium (3.5-5.1) mmol/L Chloride (98-107) mmol/L Carbon Dioxide (21-32) mmol/L Anion Gap (3-11) BUN (6-23) mg/dl Creatinine (0.6-1.4) mg/dl Est Cr Clr Drug Dosing ml/min Est GFR ( Amer) ml/min Est GFR (Non-Af Amer) ml/min BUN/Creatinine Ratio (10-20) Glucose (70-99(Fasting)) mg/dl Calcium (8.5-10.1) mg/dl Magnesium (1.7-2.4) mg/dl Troponin I High Sens 76.4 H* 80.7 H* D (0-20) pg/ml TSH 3.677 (0.300-4.500) uIu/ml Hepatitis C Ab (EIA) Hep C Ab Signal/Cutoff Diagnostic Findings NUCLEAR HEPATOBILIARY SCAN CLINICAL HISTORY: Right upper quadrant abdominal pain. COMPARISON STUDY: Abdominal ultrasound and CT dated 08/12/2022. TECHNIQUE: Dynamic images of the liver and anterior abdomen were obtained every 5 minutes for a total of 60 minutes following the IV administration of 5.2 mCi of technetium 99m Mebrofenin. FINDINGS: The hepatobiliary scan shows prompt and homogeneous hepatic uptake. There is visualized activity within the intra and extrahepatic biliary tree at 10 minutes, and within the gallbladder at 15 minutes. There is normal biliary to bowel transit, with small bowel visualized by 45 minutes. IMPRESSION: Normal nuclear hepatobiliary scan. There is no scintigraphic evidence of cholecystitis.
--- NOTE | 2022-08-13 11:42 | Cardiology Consultation ---
Date of Consultation August 13, 2022 Assessment & Plan (1) RUQ abdominal pain: (2) Shortness of breath: (3) Elevated troponin level: Plan The patient has an unusual presentation. He does not have any significant risk factors for heart disease except a strong family history. He does have a that would be consistent with mitral regurgitation which has not been in his past history. Cardiac markers with high-sensitivity troponin are borderline elevated with no significant delta. EKG showed no acute changes and he is in a sinus rhythm. He has been in a sinus rhythm on telemetry as well. He had an echocardiogram completed which I will need to review. Once I review that study I will have additional recommendations. History of Present Illness Attending Physician: Mani Beal MD History of Present Illness This is a 66-year-old male patient with minimal past medical history and takes no medications at home. Starting approximately a week ago he has had abdominal bloating and left and right upper quadrant discomfort. He has also noted some orthopnea and shortness of breath especially when he lies flat. He also notices a little bit of tachypnea with activity starting a few days prior to admission. After admission, he has had an extensive work-up for gallbladder disease and surgery has seen him with all negative results. The patient is a non-smoker. No prior history of diabetes, hypertension or hypercholesterolemia. He does have a strong family history of early heart disease. Allergies Allergy/AdvReac Type Severity Reaction Status Date / Time naproxen Allergy Severe G I BLEED Verified 08/12/22 06:57 Home Medications Medication Instructions Recorded Confirmed Type No Known Home Medications 08/12/22 08/12/22 History Patient History Medical History BPH (benign prostatic hyperplasia) GI bleed Hypothyroidism (acquired) Nausea and vomiting after administration of anesthetic agent Osteoarthritis Surgical History History of arthroscopy of right knee x2 History of bilateral inguinal hernia repair History of carpal tunnel surgery of right wrist History of colonoscopy History of esophagogastroduodenoscopy (EGD) History of left inguinal hernia repair History of repair of right rotator cuff History of tonsillectomy History of tooth extraction Hx of vasectomy Status post repair of nerve right hand Family History Mother Family history of reaction to anesthesia nausea Family history of diabetes mellitus Social History Smoking Status: Former smoker Second Hand Exposure: No; Hx Alcohol Use: No Hx Substance Use: No Preferred Language: French Communication Ability: Effective Ballistics Tester Required: No Beliefs That Will Affect Care: None marital status: Current Living Situation: Spouse Current Living Situation Comment: Lives with and 2 kids Feels Safe at Home: Yes Safety Concerns: Feels Safe At This Time Assistive Devices: Glasses Review of Systems Review of Systems: Review of Systems: See HPI for pertinent positives. All other 10 point review of systems are negative. Physical Exam Physical Exam: General: no acute distress and stated age Head: normocephalic, no masses, lesions, tenderness or abnormalities Eyes: conjunctiva are pink and non-injected, sclera clear Neck: supple, no adenopathy, no bruits, normal jugular venous pulse, no hepatojugular reflux Chest: normal shape and normal respiratory effort Lungs: clear to auscultation and percussion Cardiac Exam: - regular rate & rhythm, holosystolic murmur at the apex of the heart- normal S1, normal S2 Pulses: 2(+) throughout Abdomen: abdomen soft, non-tender, no abnormal masses and no hepatosplenomegaly Musculoskeletal: no gait disturbance, no joint inflammation, no deforming arthritis Extremities: no edema and no cyanosis Neuro: grossly normal exam Results & Data ([facility]) Vital Signs (Past 12 Hours) Vital Signs Temp Pulse Pulse Resp BP BP Pulse Ox 08/13/22 06:00 94 H 08/13/22 10:47 36.4 C L 90 18 126/87 98 08/13/22 07:00 08/13/22 07:10 36.5 C 101 H 18 124/85 96 08/13/22 04:00 36.8 C 93 H 20 115/78 92 08/13/22 00:00 95 H O2 Del Method 08/13/22 06:00 08/13/22 10:47 Room Air 08/13/22 07:00 Room Air 08/13/22 07:10 Room Air 08/13/22 04:00 Room Air 08/13/22 00:00 Laboratory Results Laboratory Results - last 24 hr 08/12/22 08/12/22 08/13/22 14:45 14:45 05:33 WBC 8.07 RBC 4.36 L Hgb 13.3 L Hct 38.4 L MCV 88.1 MCH 30.5 MCHC 34.6 RDW Std Deviation 42.2 RDW Coeff of Aparna 13.2 Plt Count 240 MPV 9.5 Immature Gran % (Auto) 0.4 Neut % (Auto) 68.1 Lymph % (Auto) 22.2 Garrard % (Auto) 6.6 Eos % (Auto) 2.0 Baso % (Auto) 0.7 Neut # (Auto) 5.50 Lymph # (Auto) 1.79 Garrard # (Auto) 0.53 Eos # (Auto) 0.16 Baso # (Auto) 0.06 Immature Gran # (Auto) 0.03 Sodium Potassium Chloride Carbon Dioxide Anion Gap BUN Creatinine Est Cr Clr Drug Dosing Est GFR ( Amer) Est GFR (Non-Af Amer) BUN/Creatinine Ratio Glucose Calcium Magnesium Troponin I High Sens 76.4 H* Hepatitis C Ab (EIA) Pending Hep C Ab Signal/Cutoff Pending 08/13/22 05:33 WBC RBC Hgb Hct MCV MCH MCHC RDW Std Deviation RDW Coeff of Aparna Plt Count MPV Immature Gran % (Auto) Neut % (Auto) Lymph % (Auto) Garrard % (Auto) Eos % (Auto) Baso % (Auto) Neut # (Auto) Lymph # (Auto) Garrard # (Auto) Eos # (Auto) Baso # (Auto) Immature Gran # (Auto) Sodium 138 D Potassium 3.5 Chloride 105 Carbon Dioxide 26 Anion Gap 7 BUN 16 Creatinine 0.85 Est Cr Clr Drug Dosing 79.2 Est GFR ( Amer) 106.7 Est GFR (Non-Af Amer) 92.1 BUN/Creatinine Ratio 18.8 Glucose 77 Calcium 8.5 Magnesium 1.8 Troponin I High Sens Hepatitis C Ab (EIA) Hep C Ab Signal/Cutoff Medications Administered Current Inpatient Medications Acetaminophen (Acetaminophen 325 Mg Tab) 650 mg PO Q4H PRN PRN Reason: Pain or Fever Stop: 09/11/22 08:54 Morphine Sulfate (Morphine Sulfate 4 Mg/Ml 1 Ml Carp\Vial) 3 mg IV Q4H PRN PRN Reason: Pain Stop: 08/26/22 08:54 Nitroglycerin (Nitroglycerin Sl 0.4 Mg/Tab Tab) 0.4 mg SL UD PRN PRN Reason: Chest Pain Stop: 09/11/22 08:54 Polyethylene Glycol (Polyethylene (Miralax) 17 Gm Pack) 17 gm PO DAILY PRN PRN Reason: Constipation Stop: 09/11/22 08:54
--- NOTE | 2022-08-13 12:25 | Electrocardiogram Report ---
Test Reason : Blood Pressure : / mmHG Vent. Rate : 091 BPM Atrial Rate : 091 BPM P-R Int : 160 ms QRS Dur : 108 ms QT Int : 410 ms P-R-T Axes : 074 077 086 degrees QTc Int : 504 ms Sinus rhythm with Premature supraventricular complexes T wave abnormality, consider anterior ischemia Prolonged QT Abnormal ECG When compared with ECG of 12-AUG-2022 04:16, T-wave inversion in Anteroseptal leads now present Confirmed by Jagdish Li ([id number]) on 08/13/2022 12:24:32 PM Referred By: REFERRED SELF Confirmed By:Jagdish Li
--- NOTE | 2022-08-13 13:25 | Hospitalist Progress Note ---
Date of Service August 13, 2022 Assessment & Plan (1) RUQ abdominal pain: Plan: per admitting service notes with addendum: ASSESSMENT AND PLAN: This is a 66-year-old male, who presents with shortness of breath and right upper quadrant abdominal pain. Right upper quadrant abdominal pain, resolved. LFTs are okay. We will follow the gallbladder ultrasound, and if the gallbladder ultrasound shows any gallbladder disease, we will consult GI. CT abdomen/pelvis: Unremarkable HIDA scan: Negative General surgery consulted, no procedures 08/13 symptoms resolved from passed GB stone, sludge? outpatient follow up Shortness of breath. The patient has shortness of breath when lying down and when taking deep breath. His D-dimer is elevated. CTA chest was done results pending. Er started on low-dose IV heparin will be continued for now. We will follow the final report of the CAT scan. Closely monitor in the med tele. CT angio chest: Negative for acute PE, no pleural effusion or pneumonia We will order Doppler ultrasound of the legs Wean of oxygen 08/13 D dimer 2000s no PE, no DVT further work up as outpatient 2. Elevated troponin, mostly demand ischemia. No cardiac symptoms Troponin 67, 80, 76 EKG: No acute ischemia or infarct 08/13 echo pending Cardio consulted 3. Hyponatremia. Getting fluids and we will follow the repeat labs. resolved 5. History of hypothyroidism, not taking medication. TSH normal 6. Hypertension, probably from the situation and we will follow the blood pressure. BP stable overall 7. Prolonged qt . To avoid qt prolonging meds. Will follow repeat ekg. Repeat EKG tomorrow QTc 504 avoid QT prolonging agents 8. Deep venous thrombosis prophylaxis SCDs for now Admission and Anticipated Discharge Date Admission Date: August 12, 2022 Subjective ff up for RUQ pain, dyspnea, etc seen sitting in bed, comfortable in good spirits states he feels better overall RUQ and abdominal pain resolved dyspnea resolved no chest pain, dyspnea, palpitations, dizziness ambulating with no problems no other symptoms Review of Systems Review of Systems: all noted and negative except for above Physical Exam Physical Exam: General- oriented x 3, not in distress, speaks in sentences with no effort or accessory muscle use Eyes- anicteric Neck- no JVD Lungs- clear breath sounds bilaterally, no rales/wheezes Heart- normal rate, regular rhythm; no murmurs Abdomen- normal bowel sounds, nondistended, soft, nontender Extremities- no pretibial edema, no calf tenderness Neuro- alert, oriented x 3; no gross focal neurologic deficits Skin- warm & dry Results & Data Results & Data ([facility]) Vital Signs (Past 12 Hours) Vital Signs Temp Pulse Pulse Resp BP BP Pulse Ox 08/13/22 06:00 94 H 08/13/22 10:47 36.4 C L 90 18 126/87 98 08/13/22 07:00 08/13/22 07:10 36.5 C 101 H 18 124/85 96 08/13/22 04:00 36.8 C 93 H 20 115/78 92 O2 Del Method 08/13/22 06:00 08/13/22 10:47 Room Air 08/13/22 07:00 Room Air 08/13/22 07:10 Room Air 08/13/22 04:00 Room Air all noted and reviewed including below
[2022-08-13] MEDS ORDERED: lisinopril 5 MG TAB PO ONE (13:30)
[2022-08-13] MEDS ORDERED: POTASSIUM CHLORIDE CRTAB 20 MEQ TABCR PO STA (14:58)
[2022-08-14] MEDS ORDERED: BENZOCAINE/TETRACAIN/BUTAM 50 APPLN/5 GM CAN EXT ONE (07:02)
[2022-08-14] MEDS: lisinopril 5 MG TAB PO SCH (08:18)
--- NOTE | 2022-08-14 08:47 | Cardiology Progress Note ---
Date of Service August 14, 2022 Assessment & Plan (1) Elevated troponin level: (2) Abnormal EKG: (3) Shortness of breath: (4) Mitral regurgitation: (5) Family history of ischemic heart disease: (6) Systolic dysfunction: Plan 66 year old male presenting with upper abdominal discomfort, orthopnea, intermittent PND, dyspnea. Chest imaging with pulmonary edema, receiving 40 mg IV furosemide in the ER. Troponin mildly elevated. EKG suggestive of anterior ischemia. Resting echocardiography with mildly reduced LV systolic function, EF 45-50%, moderate to severe mitral regurgitation, ? ischemic versus nonischemic in etiology. Telemetry with ectopy, NS-VT. Check AM labs, blood cultures, follow-up chest x-ray Add 81 mg/day Add metoprolol succinate 12.5 mg/day Add atorvastatin 20 mg/day Continue DANELLE inhibition (lisinopril) NPO for cardiac testing, diagnostic cardiac catheterization, CRISTOBAL Admission and Anticipated Discharge Date Admission Date: August 12, 2022 Supervising Physician Co-Signing Physician Notes Patient seen and examined at the bedside. Shortness of breath improved with diuretic therapy. No orthopnea or PND overnight. Denies chest discomfort or palpitations. PE: VSS. Gen: NAD, AAO x3. Heart: Regular rhythm. Normal S1-S2. 2/6 holosystolic murmur heard throughout the precordium. Lungs: Diminished breath sounds at the bases bilateral. Extremities: No edema. Neurologic: No focal deficit. A/P: Agree with above AP history, physical exam, assessment and plan. Transesophageal echocardiogram demonstrating posterior mitral valve prolapse with P3 flail and severe mitral regurgitation. We will proceed with right and left heart catheterization today. Further recommendations pending results of study. Ultimately patient will require mitral valve repair versus replacement and cardiothoracic surgical evaluation. Subjective Patient seen and examined. Chart, medications, and telemetry reviewed. Approximately one week ago he stated to have stomach bloating, tenderness, right upper quadrant discomfort "just below the rib cage" and also some left upper quadrant discomfort with associated nausea. Notes not being able to lay down at night due to shortness of breath starting two days ago and now experiencing dyspnea with exertional activities. He thought he had an inflamed gallbladder and tried dietary changes without relief, ultimately coming to the ER on 08/12/2022. Inpatient gallbladder workup has been negative. Chest x-ray revealed cardiomegaly and mild pulmonary edema Chest CT was negative for PE, revealing interstitial thickening, a small right pleural effusion, and trace left pleural effusion. Received 40 mg IV furosemide in the ER Troponin: 67.4-> 80.7->76.4 pg/mL EKG on 08/13/2022 revealed sinus rhythm at 91 bpm with premature supraventricular complexes and T wave changes anteriorly consistent with ischemia August 12, 2022 TTE Interpretation Summary ([facility], Dr. Verdugo): Mildly dilated LV. Normal LV wall thickness. Mildly reduced LV systolic function. EF 45-50%. Mildly reduced RV systolic function. Moderately dilated LA. Mild to moderately dilated RA. Thickened mitral valve leaflets with moderate to severe mitral regurgitation. The mitral regurgitant jet is posteriorly directed, consistent with anterior leaflet pathology. Mild to moderate tricuspid regurgitation. PASP 35-40 mmHg. Telemetry: Sinus in the 80's. + Atrial and ventricular ectopy. 6 beat run of VT at 4:13 AM Patient denies prior cardiac history. He denies history of CAD, VT, CHF, arrhythmia, heart murmur, rheumatic fever or scarlet fever. No recent tattoos. No IV drug use. No recent dental work, last about 2 years ago per patient report. No recent surgeries. No recent infections. No rash. No fevers or chills. No chest pain. No palpitations. No peripheral edema. No dizziness, near syncope, or true syncope. No night sweats. No epistaxis, hemoptysis, melena, hematochezia, or hematuria. No history of hypertension, dyslipidemia, or diabetes. Past Medical and Surgical History: Hypothyroidism Bilateral shoulder surgery, 2019 Shingles on the RUE after shoulder surgery. Dental work, crown, about two years ago. Notes that it "didn't work" and "I never went back." Colonoscopy with biopsy Tonsillectomy Right knee arthroscopic meniscectomy Left inguinal hernia repair Vasectomy. Family History: Mother with CAD status post CABG and pacer. Father with CAD status post CABG. Three brothers with heart issues, details unknown. Sister with a ? PE at 41. Social History: Nonsmoker. No alcohol. No illegal drug use. 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 . Two children. Complete Review of Systems: Constitutional: No change in weight. No fevers, sweats, or chills. HEENT: No amaurosis fugax. Pulmonary: No history of sleep apnea, pulmonary embolism, COPD or asthma. Cardiac: See above. GI/Abd: No dys phagia, pain, melana or hematochezia. No significant heartburn. Denies liver or kidney problems. Vascular: Denies history of claudication, AAA, or carotid artery disease. Hematologic: No coagulation disorder, anemia, or abnormal bleeding. Musculoskeletal: See above. Skin: No rash. No tick bites. Neurologic: No history of TIA or CVA. No history of seizure. Male : + Nocturia. Endocrine: Denies diabetes. History of hypothyroidism, off medication for a couple of years. Complete Review of Systems is as stated above, negative, or noncontributory. Physical Exam Physical Exam: General: A&Ox3. NAD. HENT: Normocephalic. Atraumatic. Eyes: PER. Conjunctiva pink, sclera clear. Neck: No carotid bruits. No JVD. Heart: RRR. Grade III/ systolic murmur. No diastolic murmur. PMI is nondisplaced. Lungs: Decreased at the bases. Right basilar rales. No wheeze. Abdomen: +BS. Soft. Nontender. No masses or organomegaly. Extremities: No clubbing, cyanosis, or edema. Limited neurological examination is without focal deficits. Pulses: radial=2/4, posterior tibial=2/4. Results & Data ([facility]) Vital Signs (Past 12 Hours) Vital Signs Temp Pulse Pulse Resp BP BP Pulse Ox 08/14/22 07:37 36.4 C L 78 16 128/86 97 08/14/22 07:25 101 H 08/14/22 04:08 36.7 C 85 20 109/70 94 08/14/22 00:05 36.3 C L 92 H 20 105/70 94 08/13/22 23:12 96 H 08/13/22 23:12 O2 Del Method 08/14/22 07:37 Room Air 08/14/22 07:25 08/14/22 04:08 Room Air 08/14/22 00:05 Room Air 08/13/22 23:12 08/13/22 23:12 Room Air Laboratory Results Intake and Output 03/09/23 03/10/23 03/10/23 22:59 06:59 14:59 Intake Total 665 / 1005 340 / 1005 Balance 665 / 1005 340 / 1005 Intake: Oral 665 / 1005 340 / 1005 Other: Weight 73.6 kg Weight Measurement Method Standing Scale
--- NOTE | 2022-08-14 09:52 | XRay Report ---
XR chest 1V portable CLINICAL HISTORY: CHF TECHNIQUE: Single frontal radiograph of the chest was obtained. Comparison: Comparison is made to chest radiograph 08/12/2022 FINDINGS: No lines and tubes are seen. Cardiomegaly is noted. The lungs are clear apart trace atelectasis in th e lung bases. No evidence of pleural effusion or pneumothorax. IMPRESSION: Cardiomegaly without evidence of pulmonary edema. ACT 112: Negative or not required by law. Electronically signed by: Josh Castro M.D. 08/14/2022 9:50 AM
[2022-08-14] MEDS: METOPROLOL SUCC 25MG EXT REL TAB PO SCH (09:57)
[2022-08-14] MEDS: ATORVASTATIN 20 MG TAB PO SCH (09:57)
[2022-08-14] MEDS: ASPIRIN 81 MG ECTAB PO SCH (09:57)
[2022-08-14 10:29] LABS: Hematocrit (blood only) 41.1 % (42.0-52.0); Hemoglobin 14.1 g/dl (14.0-18.0); Mean Corpuscular Hemoglobin 30.3 pg (25.0-34.0); Mean Corpuscular Hgb Conc 34.3 g/dL (32.0-36.0); Mean Corpuscular Volume 88.4 fL (80.0-100.0); Mean Platelet Volume 9.1 fL (9.4-12.4); Platelet Count 261 K/uL (130-400); RDW Coefficient of Variation 13.5 % (11.5-14.5); RDW Standard Deviation 43.2 fL (36.4-46.3); Red Blood Count 4.65 M/uL (4.70-6.10); White Blood Count 7.13 K/ul (4.8-10.8)
[2022-08-14 10:44] LABS: Potassium 4.1 mmol/L (3.5-5.1)
[2022-08-14 10:49] LABS: BUN Creatinine Ratio 16.3 (10-20); Creatinine Clr Calc Pharmacy 78.3 ml/min; Est GFR (African American) 106.2 ml/min; Est GFR (Non-African American) 91.6 ml/min
[2022-08-14] MEDS ORDERED: PROPOFOL IV EMULSION 10 MG/ML 20 ML VIAL IV ONE (11:15)
--- NOTE | 2022-08-14 11:22 | Anesthesiology Consultation ---
Date of Service August 14, 2022 Assessment & Plan Chart Review Chart Review: Acceptable Risk for Surgery and Patient NOT seen in Pre Admission Testing Consults Requested none ASA ASA4 Proposed Anesthesia Anesthesia Type: MAC History Surgery Operation Date: 08/14/22 11:00 Proposed Procedures p Cath, Right and Left Heart - Cristian Cano DO s Transesophageal Echo w/Anesthesia - Cristian Cano DO Height/Weight Height: 5 ft 6 in Weight: 73.6 kg Allergies Allergy/AdvReac Type Severity Reaction Status Date / Time naproxen Allergy Severe G I BLEED Verified 08/12/22 06:57 Medications Home Medications Medication Instructions Recorded Confirmed Last Taken No Known Home Medications 08/12/22 08/12/22 Unknown Active Medications Generic Name Dose Route Start Last Admin Trade Name Freq PRN Reason Stop Dose Admin Aspirin 81 mg 08/14/22 09:30 08/14/22 09:57 Aspirin 81 Mg Ectab PO 09/13/22 09:29 81 mg QAM FABIEN Administration Atorvastatin Calcium 20 mg 08/14/22 09:30 08/14/22 09:57 Atorvastatin 20 Mg Tab PO 09/13/22 09:29 20 mg QAM FABIEN Administration Lisinopril 5 mg 08/14/22 09:00 08/14/22 08:18 Lisinopril 5 Mg Tab PO 09/13/22 08:59 5 mg QAM FABIEN Administration Metoprolol Succinate 12.5 mg 08/14/22 09:30 08/14/22 09:57 Metoprolol Succ 25mg Ext Rel Tab PO 09/13/22 09:29 12.5 mg QAM FABIEN Administration Past Medical History Medical History BPH (benign prostatic hyperplasia) GI bleed Hypothyroidism (acquired) Nausea and vomiting after administration of anesthetic agent Osteoarthritis Exercise / Class Metabolic Activity III < 4 Walking/Shop/Light housework Past Family History Family History Mother Family history of reaction to anesthesia nausea Family history of diabetes mellitus Past Surgical History Surgical History History of arthroscopy of right knee x2 History of bilateral inguinal hernia repair History of carpal tunnel surgery of right wrist History of colonoscopy History of esophagogastroduodenoscopy (EGD) History of left inguinal hernia repair History of repair of right rotator cuff History of tonsillectomy History of tooth extraction Hx of vasectomy Status post repair of nerve right hand Past Anesthesia History No Hx of Anesthesia Complications and No Family Hx of Anesthesia Complications History of PONV No Hx of PONV and No Hx of Motion Sickness Social History Smoking Status: Former smoker Hx Alcohol Use: No Hx Substance Use: No substance use type: does not use Physical Exam Vital Signs Last Vital Signs Temp 36.4 C L 08/14/22 07:37 Pulse 78 08/14/22 07:37 Resp 16 08/14/22 07:37 BP 128/86 08/14/22 07:37 Pulse Ox 97 08/14/22 07:37 O2 Del Method Room Air 08/14/22 09:28 O2 Flow Rate 2 08/12/22 08:56 Testing Laboratory Results 08/14/22 10:09 08/14/22 10:09 PT 12.8 Seconds (9.0-12.0) H 08/12/22 04:23 INR 1.2 (0.9-1.1) H 08/12/22 04:23 APTT 29.1 Seconds (21.0-31.0) 08/12/22 04:23 Urine Color Yellow 08/12/22 Unknown Urine Appearance Clear (Clear) 08/12/22 Unknown Urine pH 6.0 (4.5-7.5) 08/12/22 Unknown Ur Specific [place] 1.009 (1.000-1.030) 08/12/22 Unknown Urine Protein Negative (Negative) 08/12/22 Unknown Urine Glucose (UA) Negative (Negative) 08/12/22 Unknown Urine Ketones Negative (Negative) 08/12/22 Unknown Urine Nitrite Negative (Negative) 08/12/22 Unknown Ur Leukocyte Esterase Negative (Negative) 08/12/22 Unknown Electrocardiogram Date: 08/13/22 Findings: + NSR @ (@ 91 w/ PSVC's;T wave abnormality;consider anterior ischemia;prolonged QT) Chest X-Ray Date: 08/14/22 Findings: + cardiomegaly; no pulmonary vascular congestion Echocardiogram Date: 08/13/22 EF: 45%;LV-mildly dilated LV Function: dysfunctional RWMA: + hypokinetic Other Findings: + atrial enlargement (RA/LA mod. dilated) Valvular Disease: + MR (moderate - severe) TR-mild-mod. Pulm. HTN-35-40 Torr RV systolic fxn mildly decreased Other Testing 08/13/2018-carotid U/S- no H/D sig. stenosis
[2022-08-14] MEDS ORDERED: ePHEDrine sulfate 50 MG/ML AMP IV PRN (11:32)
[2022-08-14] MEDS ORDERED: ATROPINE SULFATE 0.1 MG/ML 10ML SYR IV PRN (11:32)
[2022-08-14] MEDS ORDERED: niCARdipine HCL INJ 2.5 MG/ML 10 ML AMP ONE (12:51)
[2022-08-14] MEDS ORDERED: MIDAZOLAM HCL 1 MG/ML 2ML VIAL ONE (12:51)
[2022-08-14] MEDS ORDERED: HEPARIN (PORCINE) 1000 UNIT/ML 10 ML (CATH LAB USE ONLY) ONE (12:51)
[2022-08-14] MEDS ORDERED: fentaNYL citrate 100 MCG/2 ML VIAL ONE (12:51)
[2022-08-14] MEDS ORDERED: NITROGLYCERIN/D5W 100MCG/ML 20ML SYR ONE (12:52)
--- NOTE | 2022-08-14 13:13 | Anesthesiology Progress Note ---
Date of Service August 14, 2022 Anesthesia Post Procedure Vital Signs Vital Signs: Temp Pulse Pulse Resp BP BP Pulse Ox 08/14/22 13:00 74 14 117/86 98 08/14/22 12:45 77 16 111/83 98 08/14/22 12:30 72 16 114/82 98 08/14/22 12:15 70 14 101/69 98 08/14/22 12:00 78 16 92/67 L 98 08/14/22 11:20 72 16 113/80 97 08/14/22 09:28 08/14/22 07:37 36.4 C L 78 16 128/86 97 08/14/22 07:25 101 H 08/14/22 04:08 36.7 C 85 20 109/70 94 08/14/22 00:05 36.3 C L 92 H 20 105/70 94 08/13/22 23:12 96 H 08/13/22 23:12 08/13/22 19:39 36.7 C 90 20 97 08/13/22 15:51 36.4 C L 62 18 127/84 100 08/13/22 14:04 105 H O2 Del Method 08/14/22 13:00 Room Air 08/14/22 12:45 Room Air 08/14/22 12:30 Room Air 08/14/22 12:15 Room Air 08/14/22 12:00 Room Air 08/14/22 11:20 Room Air 08/14/22 09:28 Room Air 08/14/22 07:37 Room Air 08/14/22 07:25 08/14/22 04:08 Room Air 08/14/22 00:05 Room Air 08/13/22 23:12 08/13/22 23:12 Room Air 08/13/22 19:39 Room Air 08/13/22 15:51 Room Air 08/13/22 14:04 Pain Intensity Right Upper Abdomen: Pain Intensity: 3 Transfer of Care Handoff Completed per policy Notes Mental Status: alert / awake / arousable Patient Amnestic to Procedure: Yes Nausea / Vomiting: adequately controlled Pain: adequately controlled Airway Patency, RR, SpO2: stable & adequate BP & HR: stable & adequate Hydration State: stable & adequate Anesthetic Complications: no major complications apparent
--- NOTE | 2022-08-14 13:15 | Pre Anesthesia Assessment ---
Date of Service August 14, 2022 Pre Sedation Assessment Vital Signs Temp Pulse Pulse Resp BP BP Pulse Ox 08/14/22 15:35 36.4 C L 89 16 122/85 96 08/14/22 14:58 08/14/22 15:30 36.4 C L 73 99 08/14/22 15:15 36.4 C L 66 122/86 95 08/14/22 14:58 36.4 C L 80 119/89 97 08/14/22 14:30 83 16 117/79 100 08/14/22 13:00 74 14 117/86 98 08/14/22 12:45 77 16 111/83 98 08/14/22 12:30 72 16 114/82 98 08/14/22 12:15 70 14 101/69 98 08/14/22 12:00 78 16 92/67 L 98 08/14/22 11:20 72 16 113/80 97 08/14/22 09:28 08/14/22 07:37 36.4 C L 78 16 128/86 97 08/14/22 07:25 101 H 08/14/22 04:08 36.7 C 85 20 109/70 94 08/14/22 00:05 36.3 C L 92 H 20 105/70 94 08/13/22 23:12 96 H 08/13/22 23:12 08/13/22 19:39 36.7 C 90 20 97 O2 Del Method 08/14/22 15:35 Room Air 08/14/22 14:58 Room Air 08/14/22 15:30 Room Air 08/14/22 15:15 Room Air 08/14/22 14:58 Room Air 08/14/22 14:30 Room Air 08/14/22 13:00 Room Air 08/14/22 12:45 Room Air 08/14/22 12:30 Room Air 08/14/22 12:15 Room Air 08/14/22 12:00 Room Air 08/14/22 11:20 Room Air 08/14/22 09:28 Room Air 08/14/22 07:37 Room Air 08/14/22 07:25 08/14/22 04:08 Room Air 08/14/22 00:05 Room Air 08/13/22 23:12 08/13/22 23:12 Room Air 03/09/23 19:39 Room Air Cardiovascular + regular rate and + regular rhythm + S1 normal, + S2 normal and + murmur no JVD no edema Respiratory + respiratory effort normal; no respiratory distress no crackles, no rales, no rhonchi and no wheezes Pre-Sedation Airway Assessment Smoking Status: Former smoker Thyromental Distance: > or= 3.5 Finger Breadths Mallampati Class: II NPO Status Date of Last Intake of Fluids: 08/13/22 Date of Last Intake of Solid Food: 08/13/22 Procedure Planning Contraindications for Sedation: none Current Medications Reviewed: Yes Notes The planned sedation has been discussed with the patient. Informed Consent was obtained. I have identified the patient, determined the appropriateness of sedation and have assessed the patient immediately prior to the procedure. All medicine(s) and interventions are by my order.
[2022-08-14 14:01] LABS: iSTAT Arterial Blood Gas HCO3 20 meg/L (19-24); iSTAT Arterial Blood Gas pCO2 29 mmHg (35-46); iSTAT Arterial Blood Gas pH 7.45 (7.35-7.45); iSTAT Arterial Blood Gas pO2 74 mmHg (80-95); iSTAT Carbon Dioxide 21 mmol/L (24-31)
[2022-08-14 14:15] LABS: iSTAT Arterial Blood Gas HCO3 22 meg/L (19-24); iSTAT Arterial Blood Gas pCO2 39 mmHg (35-46); iSTAT Arterial Blood Gas pH 7.36 (7.35-7.45); iSTAT Arterial Blood Gas pO2 < 32 mmHg (80-95); iSTAT Carbon Dioxide 23 mmol/L (24-31)
--- NOTE | 2022-08-14 14:19 | Post Anesthesia Assessment ---
Date of Service August 14, 2022 Post Sedation Assessment Vital Signs Temp Pulse Pulse Resp BP BP Pulse Ox 08/14/22 15:35 36.4 C L 89 16 122/85 96 08/14/22 14:58 08/14/22 15:30 36.4 C L 73 99 08/14/22 15:15 36.4 C L 66 122/86 95 08/14/22 14:58 36.4 C L 80 119/89 97 08/14/22 14:30 83 16 117/79 100 08/14/22 13:00 74 14 117/86 98 08/14/22 12:45 77 16 111/83 98 08/14/22 12:30 72 16 114/82 98 08/14/22 12:15 70 14 101/69 98 08/14/22 12:00 78 16 92/67 L 98 08/14/22 11:20 72 16 113/80 97 08/14/22 09:28 08/14/22 07:37 36.4 C L 78 16 128/86 97 08/14/22 07:25 101 H 08/14/22 04:08 36.7 C 85 20 109/70 94 08/14/22 00:05 36.3 C L 92 H 20 105/70 94 08/13/22 23:12 96 H 08/13/22 23:12 08/13/22 19:39 36.7 C 90 20 97 O2 Del Method 08/14/22 15:35 Room Air 08/14/22 14:58 Room Air 08/14/22 15:30 Room Air 08/14/22 15:15 Room Air 08/14/22 14:58 Room Air 08/14/22 14:30 Room Air 08/14/22 13:00 Room Air 08/14/22 12:45 Room Air 08/14/22 12:30 Room Air 08/14/22 12:15 Room Air 08/14/22 12:00 Room Air 08/14/22 11:20 Room Air 08/14/22 09:28 Room Air 08/14/22 07:37 Room Air 08/14/22 07:25 08/14/22 04:08 Room Air 08/14/22 00:05 Room Air 08/13/22 23:12 08/13/22 23:12 Room Air 03/09/23 19:39 Room Air Recovery Score Activity: Moves 4 extremities Respiration: Deep Breath/Cough Circulation: +/-20% PreAnes Value Consciousness: Fully Awake Oxygen Saturation: > 92% On Room Air Post Anesthesia Score: 10 Discharge Sedation Level of Care: Phase I Post Sedation Plan On clinical assessment, the patient appears to have tolerated the sedation without complications. Patient is recovering as anticipated. Patient will continue to be monitored by nursing and may be discharged when sedation discharge criteria are met per below protocol. Upon Completions of procedure up to 15 minutes continue every 5 minute vital signs and the P.A.R. score; then discharge to a Phase I or Fast Track to Phase II per the following guidelines: * Discharge Patient to appropriate Phase II area if PAR is 8 or greater or return to pre- procedure baseline. The post - procedure orders will be as directed. * If PAR score is less than 8 or not return to pre-procedure baseline then patient will follow Phase I monitoring till PAR is reached for Phase II. The Phase I may be done in procedure room or may call to secure a Phase I area. * If naloxone or flumazenil are used for reversal, hold in Phase I for continued monitoring from when last reversal dose was given for a minimum of 60 minutes or longer pending the nurse and/or physician discretion of patient condition before discharge to Phase II. Please call the Sedation Physician to re-evaluate and complete post-note for discharge to Phase II area. Do NOT discharge from procedure sedation or Phase 1 until post- sedation evaluation note is complete by procedure /sedation MD Sedation Discharge Instructions to be given to the patient at discharge to home.
--- NOTE | 2022-08-14 14:33 | Cardiac Catheterization ---
Cardiac Cath Procedure Full Procedure Date August 14, 2022 Pre-Procedure Diagnosis Pre-Procedure Diagnosis: Non STEMI and Valvular Disease (Severe mitral regurgitation with P3 flail) AUC Score AUC Score: 8 Post-Procedure Diagnosis Post-Procedure Diagnosis: Mild CAD and Elevated Intracardiac Pressures Procedure(s) Performed Procedure(s) Performed: Coronary Angiography, Left Heart Cath and Right Heart Cath Sterile Technician Cristian Cano DO Surgical Forceps Fabricator(s) Marjorie RTR Estimated Blood Loss Estimated Blood Loss: 6cc Medication(s) Medication(s): Fentanyl, Heparin, Lidocaine 1% and Versed Summary of Findings Mild nonobstructive coronary artery disease. Elevated left ventricular end-diastolic pressure. Mild pulmonary hypertension. Large V waves on pulmonary capillary wedge pressure tracing suggesting severe mitral regurgitation. CO/ CI: 3.96/ 2.16, Will CO/ CI: 3.30/ 1.80 TDCO Arterial Sao2: 96% PA SaO2: 60% Qp:Qs 1.0 Hemodynamics Rest Ao:: 104/73/87 Final Ao: 104/73/87 LV: 107/12/22 RA: 04/20/ RV: 47/7/13 PA: 43/18/19 PW: Recommendations Recommendations: Valve Replacement (Mitral valve repair) Radiation Exposure (mGy) 1316 Contrast (mls) 30 Fluids (cc crystalloids) Fluids (cc crystalloids): 65 Nss Drains Drains: N/A Anesthesia Moderate sedation. Start 1326. Stop 1419. Sedation monitor: Rigo MOSHER Procedural Complication(s) None Disposition PCU I attest to the content of the Intraoperative Record and any orders documented therein. Any exceptions are noted below. ACC Data: Professor Of Mathematics Cardiac Status Clinical evaluation leading to the procedure 66-year-old male present to the emergency department with shortness of breath, orthopnea, and chest discomfort. Diagnosed with acute decompensated heart failure. Transesophageal echocardiogram demonstrating severe mitral regurgitation with P3 and partial P2 flail. CAD Presenation: Unstable angina Anginal Classification: CCS III Heart Failure: NYHA Class: CCS III Cardiogenic Shock within 24 Hours: No Cardiac Arrest within 24 Hours: No Imaging Studies Past 6 Months: Yes Stress Studies Past 6 Months: No STEMI OR Non-STEMI Symptom Onset Date: 08/12/22 Symptom Onset Time: 12:00 Thrombolytics: No Coronary Anatomy Dominant: Right Left Main (% Stenosis): Normal LAD (% Stenosis): Proximal (Luminal irregularities, 10%.) D1 (% Stenosis): Ostial (20%.) Circumflex (% Stenosis): Proximal (Luminal irregularities, 10%.) OM1 (% Stenosis): Ostial (20%, Small vessel) RCA (% Stenosis): Mid (20%) R PDA (% Stenosis): Normal R PL1 (% Stenosis): Normal Diagnostic Physicians Name: Cristian Cano DO Closure Device Percutaneous Entry Location: Radial (Brachial access for right heart catheterization.) Closure Device: Radial Band (Manual hold for brachial venous access) Recommendations: Valve Replacement (Mitral valve repair) Intraprocedure Events Significant Disection: No Perforation: No
--- NOTE | 2022-08-14 16:59 | Hospitalist Progress Note ---
Date of Service August 14, 2022 delayed entry date of service noted above Assessment & Plan (1) RUQ abdominal pain: Plan: per admitting service notes with addendum: ASSESSMENT AND PLAN: This is a 66-year-old male, who presents with shortness of breath and right upper quadrant abdominal pain. Right upper quadrant abdominal pain, resolved. LFTs are okay. We will follow the gallbladder ultrasound, and if the gallbladder ultrasound shows any gallbladder disease, we will consult GI. CT abdomen/pelvis: Unremarkable HIDA scan: Negative General surgery consulted, no procedures 08/13 symptoms resolved from passed GB stone, sludge? outpatient follow up 08/14 Echocardiogram: EF 45 to 50% moderate to severe mitral regurgitation Status post cardiac cath by Dr. Cano: Non Obstructive artery disease, severe mitral regurgitation New medications started: Metoprolol, lisinopril, aspirin, Lipitor Follow-up with cardiology clinic for mitral valve replacement Shortness of breath. The patient has shortness of breath when lying down and when taking deep breath. His D-dimer is elevated. CTA chest was done results pending. Er started on low-dose IV heparin will be continued for now. We will follow the final report of the CAT scan. Closely monitor in the med tele. CT angio chest: Negative for acute PE, no pleural effusion or pneumonia We will order Doppler ultrasound of the legs Wean of oxygen 08/13 D dimer 2000s no PE, no DVT further work up as outpatient 2. Elevated troponin, mostly demand ischemia. No cardiac symptoms Troponin 67, 80, 76 EKG: No acute ischemia or infarct 08/14 Status postcardiac cath Per #1 3. Hyponatremia. Getting fluids and we will follow the repeat labs. resolved 5. History of hypothyroidism, not taking medication. TSH normal 6. Hypertension, probably from the situation and we will follow the blood pressure. BP stable overall 7. Prolonged qt . To avoid qt prolonging meds. Will follow repeat ekg. Repeat EKG tomorrow QTc 504 avoid QT prolonging agents 8. Deep venous thrombosis prophylaxis SCDs for now plan of care discussed with patient and his in detail and at length all questions answered they are understanding, agreeable, comfortable with the plan of care Admission and Anticipated Discharge Date Admission Date: August 12, 2022 Subjective Follow-up for upper quadrant pain, shortness of breath, etc. Status postcardiac cath Seen on the telemetry floor Patient sitting up, in good spirits States he feels fine overall Denies chest pain, shortness of breath, palpitations, dizziness, bleeding no other new symptoms Review of Systems Review of Systems: all noted and negative except for above Physical Exam Physical Exam: General- oriented x 3, not in distress, speaks in sentences with no effort or accessory muscle use Eyes- anicteric Neck- no JVD Lungs- clear breath sounds bilaterally, no rales/wheezes Heart- normal rate, regular rhythm; no murmurs Abdomen- normal bowel sounds, nondistended, soft, nontender Extremities- no pretibial edema, no calf tenderness Neuro- alert, oriented x 3; no gross focal neurologic deficits Skin- warm & dry Results & Data Results & Data ([facility]) Vital Signs (Past 12 Hours) Vital Signs Temp Pulse Pulse Resp BP BP Pulse Ox 08/14/22 16:20 36.4 C L 86 16 131/85 98 08/14/22 15:35 36.4 C L 89 16 122/85 96 08/14/22 14:58 08/14/22 15:30 36.4 C L 73 99 08/14/22 15:15 36.4 C L 66 122/86 95 08/14/22 14:58 36.4 C L 80 119/89 97 08/14/22 14:30 83 16 117/79 100 08/14/22 13:00 74 14 117/86 98 08/14/22 12:45 77 16 111/83 98 08/14/22 12:30 72 16 114/82 98 08/14/22 12:15 70 14 101/69 98 08/14/22 12:00 78 16 92/67 L 98 08/14/22 11:20 72 16 113/80 97 08/14/22 09:28 08/14/22 07:37 36.4 C L 78 16 128/86 97 08/14/22 07:25 101 H O2 Del Method 08/14/22 16:20 Room Air 08/14/22 15:35 Room Air 08/14/22 14:58 Room Air 08/14/22 15:30 Room Air 08/14/22 15:15 Room Air 08/14/22 14:58 Room Air 08/14/22 14:30 Room Air 08/14/22 13:00 Room Air 08/14/22 12:45 Room Air 08/14/22 12:30 Room Air 08/14/22 12:15 Room Air 08/14/22 12:00 Room Air 08/14/22 11:20 Room Air 08/14/22 09:28 Room Air 08/14/22 07:37 Room Air 08/14/22 07:25 all noted and reviewed including below
[2022-08-15] MEDS: METOPROLOL SUCC 25MG EXT REL TAB PO SCH (08:04)
[2022-08-15] MEDS: ASPIRIN 81 MG ECTAB PO SCH (08:04)
[2022-08-15] MEDS: lisinopril 5 MG TAB PO SCH (08:04)
[2022-08-15] MEDS: ATORVASTATIN 20 MG TAB PO SCH (08:05)
[2022-08-15 09:53] LABS: BUN Creatinine Ratio 12.9 (10-20); Calcium 8.9 mg/dl (8.5-10.1); Creatinine Clr Calc Pharmacy 79.2 ml/min; Est GFR (African American) 106.7 ml/min; Est GFR (Non-African American) 92.1 ml/min
[2022-08-15] MEDS ORDERED: METOPROLOL SUCC 50MG EXT REL TAB PO STA (10:48)
--- NOTE | 2022-08-15 10:56 | Cardiology Progress Note ---
Date of Service August 15, 2022 Assessment & Plan (1) Severe mitral regurgitation: (2) Acute heart failure with preserved ejection fraction: (3) Mild pulmonary hypertension: Plan I had a long discussion with the patient and his regarding the natural history and pathophysiology of severe mitral regurgitation, mitral valve prolapse with flail P3/P2 segment, and acute heart failure secondary to mildly reduced LV function and severe valvular heart disease. Results of transes ophageal echocardiogram and left/right cardiac catheterization reviewed. Recommend cardiothoracic surgery consultation to consider mitral valve repair. Patient appears compensated today. Recommend continuing evidence-based heart failure therapy including beta-toby and DANELLE inhibitor. Add furosemide 20 mg daily with 10 mEq of potassium supplementation. Repeat basic metabolic panel in 1 week as an outpatient. With evidence of nonobstructive coronary disease, recommend continuing low-dose aspirin and statin therapy. Close outpatient cardiology follow-up in [address] referral for outpatient CT surgery consultation within 1 week as well. Admission and Anticipated Discharge Date Admission Date: August 12, 2022 Subjective Patient seen and examined at bedside. Feeling well overnight. Denies chest pain, shortness of breath, orthopnea, or PND. Tolerating medications. Telemetry reveals 4 beat PVC run at approximately 4 AM. No sustained dysrhythmias. present at bedside. Both patient and his have questions regarding upcoming mitral valve intervention. Requesting discharge if possible. Review of Systems Review of Systems: All systems reviewed & are unremarkable except as noted in Subjective Physical Exam Constitutional: well nourished; no acute distress Respiratory: normal respiratory effort; no respiratory distress, no labored breathing and no retractions Auscultation: no crackles, no rales, no rhonchi and no wheezes Cardiovascular: Rate/Rhythm: regular rate and regular rhythm Heart Sounds: normal S1, normal S2 and + murmur (3/6 holosystolic murmur heard best at the apex) Vessels: radial pulses present; no JVD and no carotid bruit Extremities: no edema Gastrointestinal (Abdomen): Inspection/Auscultation: abdomen normal to inspection and normal bowel sounds; abdomen not distended Percussion/Palpation: abdomen soft; abdomen nontender, no guarding and abdomen not rigid Neurologic: CN's II-XI intact bilaterally and moves all extremities; no focal motor deficits Psychiatric: A+Ox3, euthymic affect Results & Data ([facility]) Vital Signs (Past 12 Hours) Vital Signs Temp Pulse Pulse Pulse Resp BP BP 08/15/22 07:06 94 H 08/15/22 06:41 36.6 C 99 H 18 150/93 H 08/15/22 03:32 36.4 C L 81 18 102/66 08/14/22 23:31 87 08/14/22 23:17 36.9 C 75 14 122/88 Pulse Ox O2 Del Method 08/15/22 07:06 08/15/22 06:41 98 Room Air 08/15/22 03:32 92 Room Air 08/14/22 23:31 08/14/22 23:17 99 Room Air
[2022-08-15] MEDS ORDERED: POTASSIUM CHLORIDE 10 MEQ TABCR PO SCH (11:00)
[2022-08-15] MEDS ORDERED: FUROSEMIDE 20 MG TAB PO SCH (11:00)
[2022-08-16] MEDS ORDERED: METOPROLOL SUCC 25MG EXT REL TAB PO SCH (09:00)
[2022-08-17 07:20] LABS: iSTAT Venous Carbon Dioxide 23 mmol/L (24-31)
--- NOTE | 2022-08-20 16:27 | Discharge Summary ---
Discharge Summary Date of Service August 20, 2022 delayed entry date of service 08/15/22 Notes For Next Care Provider Follow-up with cardiology clinic for discussion regarding mitral valve replacement Medication Changes From Visit Metoprolol Lisinopril Aspirin Lipitor Lasix Potassium supplement Admission HPI Per Admitting Provider CHIEF COMPLAINT: Shortness of breath and right upper quadrant abdominal pain. HISTORY OF PRESENT ILLNESS: This is a 66-year-old male with past medical history significant for hypothyroidism, not on any medication currently, p resents with shortness of breath and right upper quadrant abdominal pain. The patient since last Wednesday is having shortness of breath while he is lying down and is not able to take breath, but while ambulating he is okay. He denies any chest pain, however, he developed right upper quadrant abdominal pain with nausea. As this has progressively getting worsened, he came to the ER. He has generally sees homeopathic doctors for his conditions. He saw a homeopathic doctor on Wednesday and was given medication for inflammation of the gallbladder and abdomen. He states he is not taking thyroid medications. He denies any chest pain. No nausea, no vomiting, no headache, no dizziness, no blurred visions, no earache, no runny nose, no sore throat, no cough, and no fevers. Normal bowel and bladder movements. No swelling in the legs. Hemodynamically, he is stable. Admission Exam Per Admitting Provider GENERAL: The patient is of moderate build, not in acute distress. VITAL SIGNS: Temperature 36.5, pulse 106, respiratory rate 24, blood pressure 141/105, and oxygen saturation was 92% on 2 L. HEENT: Pupils equal, round, and reactive to light. Oral mucosa moist. NECK: No JVD and no neck masses. CARDIOVASCULAR: S1 and S2 heard. Regular rate and rhythm. No murmur. No gallop. RESPIRATORY SYSTEM: Normal AP diameter. No accessory muscle use. No wheezing or crackles. ABDOMEN: Soft. Bowel sounds present. Right upper quadrant tenderness present. No guarding. No rigidity. CENTRAL NERVOUS SYSTEM: Cranial nerves II-XII grossly intact, nonfocal. EXTREMITIES: No edema. No erythema. Principal Dx & Hospital Course #1 = Principal Diagnosis (1) RUQ abdominal pain: per admitting service notes with addendum: ASSESSMENT AND PLAN: This is a 66-year-old male, who presents with shortness of breath and right upper quadrant abdominal pain. Right upper quadrant abdominal pain, resolved. LFTs are okay. We will follow the gallbladder ultrasound, and if the gallbladder ultrasound shows any gallbladder disease, we will consult GI. CT abdomen/pelvis: Unremarkable HIDA scan: Negative General surgery consulted, no procedures 08/13 symptoms resolved from passed GB stone, sludge? outpatient follow up 08/14 Patient also evaluated for cardiac etiology of right upper quadrant pain and shortness of breath Found to have CHF with reduced EF, severe mitral regurgitation Echocardiogram: EF 45 to 50% moderate to severe mitral regurgitation Status post cardiac cath by Dr. Ralph: Non Obstructive artery disease, severe mitral regurgitation New medications started: Metoprolol, lisinopril, aspirin, Lipitor Follow-up with cardiology clinic for mitral valve replacement Shortness of breath. The patient has shortness of breath when lying down and when taking deep breath. His D-dimer is elevated. CTA chest was done results pending. Er started on low-dose IV heparin will be continued for now. We will follow the final report of the CAT scan. Closely monitor in the med tele. CT angio chest: Negative for acute PE, no pleural effusion or pneumonia We will order Doppler ultrasound of the legs Wean of oxygen 08/13 D dimer 2000s no PE, no DVT further work up as outpatient thyromegaly Prostatomegaly Seen on CT abdomen and pelvis Bladder wall thickening compatible with chronic outlet obstruction in this patient with prostatomegaly. Further work up, management, and ff up as outpatient Skin skin 2. Elevated troponin, mostly demand ischemia. No cardiac symptoms Troponin 67, 80, 76 EKG: No acute ischemia or infarct 08/14 Status postcardiac cath Per #1 3. Hyponatremia. Getting fluids and we will follow the repeat labs. resolved 5. History of hypothyroidism, not taking medication. TSH normal 6. Hypertension, probably from the situation and we will follow the blood pressure. BP stable overall 7. Prolonged qt . To avoid qt prolonging meds. Will follow repeat ekg. Repeat EKG: QTc 504 avoid QT prolonging agents 8. Deep venous thrombosis prophylaxis SCDs for now plan of care discussed with patient and his in detail and at length all questions answered they are understanding, agreeable, comfortable with the plan of care Discharge Exam General- oriented x 3, not in distress, speaks in sentences with no effort or accessory muscle use Eyes- anicteric Neck- no JVD Lungs- clear breath sounds bilaterally, no rales/wheezes Heart- normal rate, regular rhythm; no murmurs Abdomen- normal bowel sounds, nondistended, soft, nontender Extremities- no pretibial edema, no calf tenderness Neuro- alert, oriented x 3; no gross focal neurologic deficits Skin- warm & dry Updated Medication List Medication Instructions Recorded Confirmed Type aspirin 81 mg tablet,delayed 81 mg PO QAM 30 days #30 tabs 08/15/22 Rx release atorvastatin 20 mg tablet 20 mg PO QAM 30 days #30 tabs 08/15/22 Rx furosemide 20 mg tablet 20 mg PO QAM 30 days #30 tabs 08/15/22 Rx lisinopril 5 mg tablet (Zestril) 5 mg PO QAM 30 days #30 tabs 08/15/22 Rx metoprolol succinate 25 mg 25 mg PO QAM 30 days #30 tabs 08/15/22 Rx tablet,extended release 24 hr pantoprazole 40 mg tablet,delayed 40 mg PO DAILY #30 tabs 08/15/22 Rx release (Protonix) potassium chloride 10 mEq 10 meq PO DAILY 30 days #30 tabs 08/15/22 Rx tablet,extended release(part/cryst) Hospital Stay Data Consultations 08/12/22 06:24 ED Decision to Admit Stat 08/12/22 08:44 Consult General Surgery Routine 08/13/22 08:59 Consult Cardiology Routine 08/13/22 13:04 Consult Anesthesiology Routine Procedures Performed Operation Date: 08/14/22 13:00 Actual Procedures p Cath, Right and Left Heart - Cristian Ralph DO s Cineradiography w/Routine Exam - Cristian Ralph DO Diagnostic Imagining Performed 08/12/22 04:31 US gallbladder Stat 08/12/22 06:11 CT angio chest PE protocol Stat 08/12/22 08:43 CT Abd and Pelvis [CT abd pelvis wo con] Stat 08/12/22 16:41 US venous doppler LE BI Routine 08/14/22 07:07 CL Cath Imgs for PACS use only Routine Pending Results Patient Have Any Pending Studies at Discharge: No Discharge Instructions Given to Patient (Per Discharging Provider) PLEASE REFER TO YOUR NEW MEDICATION LIST AND FOLLOW INSTRUCTIONS CAREFULLY. YOUR NEW MEDICATIONS INCLUDE: METOPROLOL LISINOPRIL ASPIRIN LIPITOR LASIX POTASSIUM SUPPLEMENT PROTONIX PLEASE CALL YOUR PRIMARY CARE PHYSICIAN OR RETURN TO THE ER IF WITH WORSENING OF SYMPTOMS, INCLUDING CHEST/ABDOMINAL PAIN, SHORTNESS OF BREATH, DIZZINESS, WEAKNESS, BLACK OR RED STOOLS, ETC FOLLOW UP WITH PRIMARY CARE PHYSICIAN OUTLINED ABOVE. [facility] UP WITH [facility] DR. RALPH IN 1-2 WEEKS. HIS CLINIC WILL BE CALLING YOU SOON FOR THE APPOINTMENT. Total Time Total Time Spent Total Time Spent (In Minutes): >30 minutes
== END 2022-08-15 14:49 | disposition home or self-care (01) | DRG 392 ==
LOC: ED 03:59 → 2N 06:58 → 4W 08-14 14:56